=== PATIENT | female | born 1940 | race Caucasian/White ===

== ENCOUNTER 2018-11-14 21:40 | Inpatient (IN) | payer MEDICARE, MEDICAID ==
[~2018-11-14] VITALS: Ht 165.1 cm; Wt 111.1 kg
[2018-11-14 21:25] VITALS: BP 164/68
--- NOTE | 2018-11-14 21:25 | NUR ---
The patient, CHERIE MATA, 78 y/o, F admitted by KEERTHI ALBA MD. Pt. arrived via EMS. Admission assessment done at this time. Pt. describes pain as discomfort around abdomen. Pt. was given written information regarding hospital policies, unit procedures and contact persons. Pt.'s son, Grey arrived on unit to help with admission. Valuables were taken with pt.'s son. Pt. still has clothing and purse left in room with her. Call light within reach, bed low. Will continue to monitor.
[2018-11-14] MEDS ORDERED: CLON0.1T PO (22:57)
[2018-11-14] MEDS ORDERED: DOCU-109 PO (22:57)
[2018-11-14] MEDS ORDERED: LISI-130 PO (22:57)
[2018-11-14] MEDS ORDERED: CETI10TA PO (22:57)
[2018-11-14] MEDS ORDERED: PANT20TA2 PO (22:57)
[2018-11-14] MEDS ORDERED: GABA-585 PO (22:57)
[2018-11-14] MEDS ORDERED: AMLO10TA8 PO (22:57)
[2018-11-14] MEDS ORDERED: POTA10TA12 PO (22:57)
[2018-11-14] MEDS ORDERED: ASPI-630 PO (22:57)
[2018-11-14] MEDS ORDERED: FURO40TA4 PO (22:57)
[2018-11-14] MEDS ORDERED: ALPR0.254 PO (22:57)
[2018-11-14] MEDS ORDERED: CARV12.511 PO (22:57)
[2018-11-14] MEDS ORDERED: CLON0.3T PO (22:57)
[2018-11-14] MEDS ORDERED: SIMV40TA3 PO (22:57)
[2018-11-14 23:00] VITALS: BP 120/54
--- NOTE | 2018-11-14 23:05 | PDOC1 ---
History and Physical Date of Admission Date of Admission DATE: 11/14/18 TIME: 23:01 History of Present Illness History of Present Illness presented to the ER at [facility] with worsening abd pain, prior mult abd surgeries, started 9 years ago oopherectomy, then bowel perf needing ostomy that has since been reversed, then hernia surg. to ER today with 1 week of worsening diffuse pain, and some diarrhea that has now stopped. CT abd done at [facility] showed mult air/fluid levels and what appeared to be fluid around prior mesh, pain is not worse since transfer, IV abx given there for UTI, pain persists, 12/10, diffuse Past Medical History Cardiovascular: HTN Pulmonary: No pertinent hx GI: Other Heme/Onc: No pertinent hx Psych: No pertinent hx Musculoskeletal: low back pain, Osteoarthritis, Swelling, Stiffness ENT: No pertinent hx Renal/: No pertinent hx Past Surgical History Past Surgical History: Hernia Repair, Total knee replacement, Colectomy, Other Family History Family History: Heart Disease Social History Smoke: No ALCOHOL: none Current Medications Current Medications Active Scripts Active Reported Aspirin 81 Mg Tab.chew 1 Tab PO DAILY Furosemide 40 Mg Tablet 1 Tab PO DAILY All Day Allergy (Cetirizine Hcl) 10 Mg Tablet 10 Mg PO DAILY Gabapentin (Gabapentin) 100 Mg Capsule 100 Mg PO TID Colace (Docusate Sodium) 100 Mg Capsule 1 Cap PO TID Alprazolam 0.25 Mg Tablet 1 Tab PO TID Carvedilol (Carvedilol) 12.5 Mg Tablet 12.5 Mg PO BIDWMEALS Clonidine Hcl 0.1 Mg Tablet 0.1 Mg PO BID Clonidine Hcl 0.3 Mg Tablet 1 Tab PO BID Simvastatin 40 Mg Tablet 40 Mg PO DAILY Potassium Chloride 10 Meq Tab.sr.24h 10 Meq PO DAILY Amlodipine Besylate 10 Mg Tablet 10 Mg PO DAILY Lisinopril 40 Mg Tablet 40 Mg PO DAILY Protonix (Pantoprazole Sodium) 20 Mg Tablet.dr 40 Mg PO DAILY Allergies Allergies: Coded Allergies: No Known Drug Allergies (Unverified , 11/14/18) ROS General: No: Chills, Night Sweats, Fatigue, Malaise, Appetite, Other PSYCHOLOGICAL ROS: No: Anxiety, Behavioral Disorder, Concentration difficultie , Decreased libido, Depression, Disorientation, Hallucinations, Hostility, Irritablity, Memory difficulties, Mood Swings, Obsessive thoughts, Physical abuse, Sexual abuse, Sleep disturbances, Suicidal ideation, Other Eyes: No Blurry vision, No Decreased vision, No Double vision, No Dry eyes, No Excessive tearing, No Eye Pain, No Itchy Eyes, No Loss of vision, No Photophobia , No Scotomata, No Uses contacts, No Uses glasses, No Other HEENT: No: Heacaches, Visual Changes, Hearing change, Nasal congestion, Nasal discharge, Oral lesions, Sinus pain, Sore Throat, Epistaxis, Sneezing, Snoring, Tinnitus, Vertigo, Vocal changes, Other ENDOCRINE: No: Breast Changes, Galactorrhea, Hair Pattern Changes, Hot Flashes , Malaise/lethargy, Mood Swings, Palpitations, Polydipsia/polyuria, Skin Changes , Temperature Intolerance, Unexpected Weight Changes, Other Respiratory: No: Cough, Hemoptysis, Orthopnea, Pleuritic Pain, Shortness of breath, SOB with excertion, Sputum Changes, Stridor, Tachypnea, Wheezing, Other Cardiovascular: No Chest Pain, No Palpitations, No Orthopnea, No Paroxysmal Noc. Dyspnea, No Edema, No Lt Headedness, No Other Gastrointestinal: Yes Nausea, Yes Abdominal Pain, Yes Diarrhea Genitourinary: No Dysuria, No Frequency, No Incontinence, No Hematuria, No Retention, No Discharge, No Urgency, No Pain, No Flank Pain, No Other, No , No , No , No , No , No , No Musculoskeletal: Yes Joint Pain (knees), Yes Joint Stiffness; No Gait Disturbance, No Joint Swelling, No Muscle Pain, No Muscular Weakness , No Pain In:, No Swelling In:, No Other Neurological: No Behavorial Changes, No Bowel/Bladder ControlChng, No Confusion , No Dizziness, No Gait Disturbance, No Headaches, No Impaired Coord/balance, No Memory Loss, No Numbness/Tingling, No Seizures, No Speech Problems, No Tremors, No Visual Changes, No Weakness, No Other Skin: No Dry Skin, No Eczema, No Hair Changes, No Lumps, No Mole Changes, No Mottling, No Nail Changes, No Pruritus, No Rash, No Skin Lesion Changes, No Other, No Acne Physical Exam General: Alert, Oriented X3, Cooperative, No acute distress, mild distress HEENT: Atraumatic, PERRLA Lungs: Clear to auscultation Heart: S1S2, RRR Abdomen: Normal bowel sounds, Soft, Other (mild diffuse tenderness, no rebound or guarding, ) Rectal Exam: not examined Extremities: No cyanosis, No edema Skin: No breakdown, No significant lesion Neuro: Normal tone, Cranial nerves 3-12 NL Psych/Mental Status: Mental status NL, Mood NL VTE Prophylaxis Ordered VTE Prophylaxis Devices: Yes VTE Pharmacological Prophylaxi: No Assessment/Plan Assessment/Plan acute abd pain SBO, partial, mult air-fluid levels, pain OK, keep NPO mild dehydration, IV fluid, consult gen surg, possible problem with prior mesh obesity, BMI 40.6 htn, 5 agents likely chronic diastolic CHF knee pain, OA, post knee surg bilat. some prior falls, will have PT KEERTHI Bradley MD Nov 14, 2018 23:05
[2018-11-14] MEDS: POTASSIUM CL 20MEQ D5-0.45NACL 1,000 ML IV SCH (23:20)
[2018-11-14] MEDS ORDERED: cloNIDine TTS-2 1 PATCH PATCH TD ONE (23:30)
[2018-11-14] MEDS ORDERED: cefTRIAXone IM 1 GM VIAL IM ONE (23:30)
--- NOTE | 2018-11-15 02:31 | NUR ---
Pt. states she feels safe at home but feels like the "shag" rug that is throughout her apartment will cause her to fall.
[2018-11-15 03:00] VITALS: BP 150/60
[2018-11-15 06:04] LABS: BASO % 0 % (0-3); EOS # 0.1 x10^3/uL (0.0-0.7); EOS % 2 % (0-3); HEMATOCRIT 34.8 % (36.0-47.0); LYMPH # 1.7 x10^3/uL (1.0-4.8); LYMPH % 32 % (24-48); MEAN CORPUSCULAR HEMOGLOBIN 26 pg (25-35); MEAN CORPUSCULAR HGB CONC 32 g/dL (31-37); MEAN CORPUSCULAR VOLUME 82 fL (79-100); MONO # 0.5 x10^3/uL (0.0-1.1); MONO % 10 % (0-9); NEUT # 2.9 x10^3uL (1.8-7.7); NEUT % 55 % (31-73); PLATELET COUNT 193 x10^3/uL (140-400); RED BLOOD COUNT 4.22 x10^6/uL (3.50-5.40); RED CELL DISTRIBUTION WIDTH 15.6 % (11.5-14.5); WHITE BLOOD COUNT 5.2 x10^3/uL (4.0-11.0)
--- NOTE | 2018-11-15 06:05 | NUR ---
Dr. Pacheco consulted this morning by this nurse.
[2018-11-15 06:26] LABS: ALBUMIN 3.4 g/dL (3.4-5.0); ALBUMIN/GLOBULIN RATIO 0.9 (1.0-1.7); CALCIUM 8.4 mg/dL (8.5-10.1); CREATININE 1.1 mg/dL (0.6-1.0); GFR 47.8; POTASSIUM 4.3 mmol/L (3.5-5.1); TOTAL BILIRUBIN 0.4 mg/dL (0.2-1.0); TOTAL PROTEIN 7.1 g/dL (6.4-8.2)
[2018-11-15 07:00] VITALS: BP 148/67
--- NOTE | 2018-11-15 08:20 | PDOC2 ---
JUANITA DAY DATAPOWER CONSULTANT 11/15/18 0820: CONSULT Date of Consult Date of Consult DATE: 11/15/18 TIME: 08:11 Reason for Consult Reason for Consult: previous surgery, mesh, possible infection Referring Physician Referring Physician: Dr Franklin Identification/Chief Complaint Chief Complaint abdominal pain Source Source: Chart review, Patient History of Present Illness Reason for Visit: Patient admitted with acute onset abdominal pain, nausea, and diarrhea. This all started yesterday. She reports it occurs intermittently, but usually feels better after diarrhea resolves. She has had multiple surgeries including colostomy and takedown. Underwent xlap and VIH repair with Dr Booker in 2012. CT at [facility] concerning for mesh infection. Past Medical History Cardiovascular: HTN Pulmonary: No pertinent hx GI: Other Heme/Onc: No pertinent hx Psych: No pertinent hx Musculoskeletal: low back pain, Osteoarthritis, Swelling, Stiffness ENT: No pertinent hx Renal/: No pertinent hx Past Surgical History Past Surgical History: Hernia Repair, Total knee replacement, Colectomy, Other Family History Family History: Heart Disease Social History No ALCOHOL: none Current Medications Current Medications Current Medications Ceftriaxone Sodium (Rocephin Im) 1 gm 1X ONCE IM Last administered on at 23:21; Start 11/14/18 at 23:30; Stop 11/14/18 at 23:31; Status DC Potassium Chloride/Dextrose/ Sod Cl 1,000 ml @ 80 mls/hr [id number] IV Last administered on 11/14/18at 23:20; Start 11/14/18 at 23:00 Clonidine HCl (Catapres Tts-2) 1 patch 1X ONCE TD Last administered on at 23:19; Start 11/14/18 at 23:30; Stop 11/14/18 at 23:31; Status DC Alprazolam (Xanax) 0.25 mg TID PO ; Start 11/15/18 at 09:00 Amlodipine Besylate (Norvasc) 10 mg DAILY PO ; Start 11/15/18 at 09:00 Aspirin (Children'S Aspirin) 81 mg DAILY PO ; Start 11/15/18 at 09:00 Carvedilol (Coreg) 12.5 mg BIDWMEALS PO ; Start 11/15/18 at 08:00 Cetirizine HCl (ZyrTEC) 10 mg DAILY PO ; Start 11/15/18 at 09:00 Clonidine HCl (Catapres) 0.1 mg BID PO ; Start 11/15/18 at 09:00; Status UNV Clonidine HCl (Catapres) 0.3 mg BID PO ; Start 11/15/18 at 09:00; Status UNV Docusate Sodium (Colace) 100 mg TID PO ; Start 11/15/18 at 09:00 Gabapentin (Neurontin) 100 mg TID PO ; Start 11/15/18 at 09:00 Lisinopril (Prinivil) 40 mg DAILY PO ; Start 11/15/18 at 09:00 Potassium Chloride (Klor-Con) 10 meq DAILY PO ; Start 11/15/18 at 09:00 Pantoprazole Sodium (Protonix) 40 mg DAILYAC PO ; Start 11/15/18 at 07:30 Atorvastatin Calcium (Lipitor) 20 mg QHS PO ; Start 11/15/18 at 21:00 Clonidine HCl (Catapres) 0.4 mg BID PO ; Start 11/15/18 at 09:00 Ketorolac Tromethamine (Toradol 15mg Vial) 15 mg PRN Q6HRS PRN IV MODERATE PAIN ; Start 11/15/18 at 00:45; Stop 11/20/18 at 00:44 Active Scripts Active Reported Aspirin 81 Mg Tab.chew 1 Tab PO DAILY Furosemide 40 Mg Tablet 1 Tab PO DAILY All Day Allergy (Cetirizine Hcl) 10 Mg Tablet 10 Mg PO DAILY Gabapentin (Gabapentin) 100 Mg Capsule 100 Mg PO TID Colace (Docusate Sodium) 100 Mg Capsule 1 Cap PO TID Alprazolam 0.25 Mg Tablet 1 Tab PO TID Carvedilol (Carvedilol) 12.5 Mg Tablet 12.5 Mg PO BIDWMEALS Clonidine Hcl 0.1 Mg Tablet 0.1 Mg PO BID Clonidine Hcl 0.3 Mg Tablet 1 Tab PO BID Simvastatin 40 Mg Tablet 40 Mg PO DAILY Potassium Chloride 10 Meq Tab.sr.24h 10 Meq PO DAILY Amlodipine Besylate 10 Mg Tablet 10 Mg PO DAILY Lisinopril 40 Mg Tablet 40 Mg PO DAILY Protonix (Pantoprazole Sodium) 20 Mg Tablet.dr 40 Mg PO DAILY Allergies Allergies: Coded Allergies: No Known Drug Allergies (Unverified , 11/14/18) ROS General: YES: Other (subjective feverish ); No: Chills PSYCHOLOGICAL ROS: No: Anxiety, Depression Eyes: No Blurry vision, No Double vision HEENT: No: Heacaches, Sore Throat Hematological and Lymphatic: No: Bleeding Problems, Blood Clots Respiratory: No: Cough, Shortness of breath Gastrointestinal: Yes Other (see hpi) Genitourinary: No Dysuria, No Hematuria Musculoskeletal: No Joint Pain, No Muscle Pain Neurological: No Confusion, No Impaired Coord/balance Skin: No Pruritus, No Rash Physical Exam General: Alert, Oriented X3, Cooperative, No acute distress HEENT: PERRLA, Mucous membr. moist/pink Lungs: Clear to auscultation, Normal air movement Heart: Regular rate, Normal S1, Normal S2, No murmurs Abdomen: Soft, No tenderness, Other (ND) Extremities: No clubbing, No cyanosis Skin: No rashes, No breakdown Neuro: Normal gait, Normal speech Psych/Mental Status: Mental status NL, Mood NL MUSCULOSKELETAL: No deformity, No swelling Vitals VITALS Vital Signs Date Time Temp Pulse Resp B/P (MAP) Pulse Ox O2 Delivery O2 Flow Rate FiO2 11/15/18 03:00 98.3 70 18 150/60 (90) 95 Room Air 98.3 Labs Labs Laboratory Tests Test 11/15/18 05:27 White Blood Count 5.2 x10^3/uL (4.0-11.0) Red Blood Count 4.22 x10^6/uL (3.50-5.40) Hemoglobin 11.0 g/dL (12.0-15.5) Hematocrit 34.8 % (36.0-47.0) Mean Corpuscular Volume 82 fL (79-100) Mean Corpuscular Hemoglobin 26 pg (25-35) Mean Corpuscular Hemoglobin Concent 32 g/dL (31-37) Red Cell Distribution Width 15.6 % (11.5-14.5) Platelet Count 193 x10^3/uL (140-400) Neutrophils (%) (Auto) 55 % (31-73) Lymphocytes (%) (Auto) 32 % (24-48) Monocytes (%) (Auto) 10 % (0-9) Eosinophils (%) (Auto) 2 % (0-3) Basophils (%) (Auto) 0 % (0-3) Neutrophils # (Auto) 2.9 x10^3uL (1.8-7.7) Lymphocytes # (Auto) 1.7 x10^3/uL (1.0-4.8) Monocytes # (Auto) 0.5 x10^3/uL (0.0-1.1) Eosinophils # (Auto) 0.1 x10^3/uL (0.0-0.7) Basophils # (Auto) 0.0 x10^3/uL (0.0-0.2) Sodium Level 139 mmol/L (136-145) Potassium Level 4.3 mmol/L (3.5-5.1) Chloride Level 101 mmol/L (98-107) Carbon Dioxide Level 28 mmol/L (21-32) Anion Gap 10 (6-14) Blood Urea Nitrogen 25 mg/dL (7-20) Creatinine 1.1 mg/dL (0.6-1.0) Estimated GFR (Cockcroft-Gault) 47.8 BUN/Creatinine Ratio 23 (6-20) Glucose Level 98 mg/dL (70-99) Calcium Level 8.4 mg/dL (8.5-10.1) Total Bilirubin 0.4 mg/dL (0.2-1.0) Aspartate Amino Transf (AST/SGOT) 19 U/L (15-37) Alanine Aminotransferase (ALT/SGPT) 13 U/L (14-59) Alkaline Phosphatase 84 U/L (46-116) Total Protein 7.1 g/dL (6.4-8.2) Albumin 3.4 g/dL (3.4-5.0) Albumin/Globulin Ratio 0.9 (1.0-1.7) Laboratory Tests Test 11/15/18 05:27 White Blood Count 5.2 x10^3/uL (4.0-11.0) Red Blood Count 4.22 x10^6/uL (3.50-5.40) Hemoglobin 11.0 g/dL (12.0-15.5) Hematocrit 34.8 % (36.0-47.0) Mean Corpuscular Volume 82 fL (79-100) Mean Corpuscular Hemoglobin 26 pg (25-35) Mean Corpuscular Hemoglobin Concent 32 g/dL (31-37) Red Cell Distribution Width 15.6 % (11.5-14.5) Platelet Count 193 x10^3/uL (140-400) Neutrophils (%) (Auto) 55 % (31-73) Lymphocytes (%) (Auto) 32 % (24-48) Monocytes (%) (Auto) 10 % (0-9) Eosinophils (%) (Auto) 2 % (0-3) Basophils (%) (Auto) 0 % (0-3) Neutrophils # (Auto) 2.9 x10^3uL (1.8-7.7) Lymphocytes # (Auto) 1.7 x10^3/uL (1.0-4.8) Monocytes # (Auto) 0.5 x10^3/uL (0.0-1.1) Eosinophils # (Auto) 0.1 x10^3/uL (0.0-0.7) Basophils # (Auto) 0.0 x10^3/uL (0.0-0.2) Sodium Level 139 mmol/L (136-145) Potassium Level 4.3 mmol/L (3.5-5.1) Chloride Level 101 mmol/L (98-107) Carbon Dioxide Level 28 mmol/L (21-32) Anion Gap 10 (6-14) Blood Urea Nitrogen 25 mg/dL (7-20) Creatinine 1.1 mg/dL (0.6-1.0) Estimated GFR (Cockcroft-Gault) 47.8 BUN/Creatinine Ratio 23 (6-20) Glucose Level 98 mg/dL (70-99) Calcium Level 8.4 mg/dL (8.5-10.1) Total Bilirubin 0.4 mg/dL (0.2-1.0) Aspartate Amino Transf (AST/SGOT) 19 U/L (15-37) Alanine Aminotransferase (ALT/SGPT) 13 U/L (14-59) Alkaline Phosphatase 84 U/L (46-116) Total Protein 7.1 g/dL (6.4-8.2) Albumin 3.4 g/dL (3.4-5.0) Albumin/Globulin Ratio 0.9 (1.0-1.7) Images Images CT-There is mesh from prior large ventral abdominal wall hernia repair. There are a few foci of air and fluid along the mesh in the anterior lobe pelvis images 54 through 58. This suggest infection. Clinical correlation is suggested. Assessment/Plan Assessment/Plan abd pain, diarrhea UTI CT concerning for possible mesh infection overall pain improved cdiff testing at [facility] pending will review with DANICA Ruiz MD 11/16/18 0830: CONSULT Assessment/Plan Assessment/Plan Patient had abdominal pain and felt she was on fire and mouth swelling. CT reviewed mesh appears with expected inflammation. No evidence of infection normal wbc and afebrile. No surgical plans. Agree with Melody's assessment and plan. JUANITA DAY APRN Nov 15, 2018 08:20 DANICA BOOKER MD Nov 16, 2018 08:30
[2018-11-15] MEDS ORDERED: cloNIDine HCL 0.1 MG TABLET PO SCH (09:00)
[2018-11-15] MEDS ORDERED: cloNIDine HCL 0.3 MG TABLET PO SCH (09:00)
[2018-11-15] MEDS: KETOROLAC 15 MG/ML VIAL. IV PRN ×2 (09:46→17:26)
--- NOTE | 2018-11-15 10:27 | NUR ---
SW following for discharge planning. Discussed with RN, pt is from a [facility] facility. SW looked up pt's address, it is for [facility]. RN advised pt could possibly be having surgery. SW will continue to follow for any discharge planning needs.
[2018-11-15 11:00] VITALS: BP 144/66
--- NOTE | 2018-11-15 11:29 | PDOC ---
PROGRESS NOTES Chief Complaint Chief Complaint acute abd pain suspect SBO, partial, mult air-fluid levels, keep NPO, continue IVF. consult gen surg for further recommendations. UTI, check urine culture and continue rocephin obesity, BMI 40.6 htn, continue home meds likely chronic diastolic CHF. hold fluids once seen by GI. knee pain,OA: post knee surg bilat.some prior falls, PT eval Vitals Vitals Vital Signs Date Time Temp Pulse Resp B/P (MAP) Pulse Ox O2 Delivery O2 Flow Rate FiO2 11/15/18 08:10 Room Air 11/15/18 07:00 98.5 95 18 148/67 (94) 92 98.5 Physical Exam General: Alert, Oriented X3, Cooperative, No acute distress Heart: Regular rate, Normal S1, Normal S2, No murmurs Abdomen: Soft, No tenderness, Other (ND) Extremities: No clubbing, No cyanosis Skin: No rashes, No breakdown Labs LABS Laboratory Tests Test 11/15/18 05:27 White Blood Count 5.2 x10^3/uL (4.0-11.0) Red Blood Count 4.22 x10^6/uL (3.50-5.40) Hemoglobin 11.0 g/dL (12.0-15.5) Hematocrit 34.8 % (36.0-47.0) Mean Corpuscular Volume 82 fL (79-100) Mean Corpuscular Hemoglobin 26 pg (25-35) Mean Corpuscular Hemoglobin Concent 32 g/dL (31-37) Red Cell Distribution Width 15.6 % (11.5-14.5) Platelet Count 193 x10^3/uL (140-400) Neutrophils (%) (Auto) 55 % (31-73) Lymphocytes (%) (Auto) 32 % (24-48) Monocytes (%) (Auto) 10 % (0-9) Eosinophils (%) (Auto) 2 % (0-3) Basophils (%) (Auto) 0 % (0-3) Neutrophils # (Auto) 2.9 x10^3uL (1.8-7.7) Lymphocytes # (Auto) 1.7 x10^3/uL (1.0-4.8) Monocytes # (Auto) 0.5 x10^3/uL (0.0-1.1) Eosinophils # (Auto) 0.1 x10^3/uL (0.0-0.7) Basophils # (Auto) 0.0 x10^3/uL (0.0-0.2) Sodium Level 139 mmol/L (136-145) Potassium Level 4.3 mmol/L (3.5-5.1) Chloride Level 101 mmol/L (98-107) Carbon Dioxide Level 28 mmol/L (21-32) Anion Gap 10 (6-14) Blood Urea Nitrogen 25 mg/dL (7-20) Creatinine 1.1 mg/dL (0.6-1.0) Estimated GFR (Cockcroft-Gault) 47.8 BUN/Creatinine Ratio 23 (6-20) Glucose Level 98 mg/dL (70-99) Calcium Level 8.4 mg/dL (8.5-10.1) Total Bilirubin 0.4 mg/dL (0.2-1.0) Aspartate Amino Transf (AST/SGOT) 19 U/L (15-37) Alanine Aminotransferase (ALT/SGPT) 13 U/L (14-59) Alkaline Phosphatase 84 U/L (46-116) Total Protein 7.1 g/dL (6.4-8.2) Albumin 3.4 g/dL (3.4-5.0) Albumin/Globulin Ratio 0.9 (1.0-1.7) Comment Review of Relevant I have reviewed the following items sheng (where applicable) has been applied. Labs Laboratory Tests Test 11/15/18 05:27 White Blood Count 5.2 x10^3/uL (4.0-11.0) Red Blood Count 4.22 x10^6/uL (3.50-5.40) Hemoglobin 11.0 g/dL (12.0-15.5) Hematocrit 34.8 % (36.0-47.0) Mean Corpuscular Volume 82 fL (79-100) Mean Corpuscular Hemoglobin 26 pg (25-35) Mean Corpuscular Hemoglobin Concent 32 g/dL (31-37) Red Cell Distribution Width 15.6 % (11.5-14.5) Platelet Count 193 x10^3/uL (140-400) Neutrophils (%) (Auto) 55 % (31-73) Lymphocytes (%) (Auto) 32 % (24-48) Monocytes (%) (Auto) 10 % (0-9) Eosinophils (%) (Auto) 2 % (0-3) Basophils (%) (Auto) 0 % (0-3) Neutrophils # (Auto) 2.9 x10^3uL (1.8-7.7) Lymphocytes # (Auto) 1.7 x10^3/uL (1.0-4.8) Monocytes # (Auto) 0.5 x10^3/uL (0.0-1.1) Eosinophils # (Auto) 0.1 x10^3/uL (0.0-0.7) Basophils # (Auto) 0.0 x10^3/uL (0.0-0.2) Sodium Level 139 mmol/L (136-145) Potassium Level 4.3 mmol/L (3.5-5.1) Chloride Level 101 mmol/L (98-107) Carbon Dioxide Level 28 mmol/L (21-32) Anion Gap 10 (6-14) Blood Urea Nitrogen 25 mg/dL (7-20) Creatinine 1.1 mg/dL (0.6-1.0) Estimated GFR (Cockcroft-Gault) 47.8 BUN/Creatinine Ratio 23 (6-20) Glucose Level 98 mg/dL (70-99) Calcium Level 8.4 mg/dL (8.5-10.1) Total Bilirubin 0.4 mg/dL (0.2-1.0) Aspartate Amino Transf (AST/SGOT) 19 U/L (15-37) Alanine Aminotransferase (ALT/SGPT) 13 U/L (14-59) Alkaline Phosphatase 84 U/L (46-116) Total Protein 7.1 g/dL (6.4-8.2) Albumin 3.4 g/dL (3.4-5.0) Albumin/Globulin Ratio 0.9 (1.0-1.7) Laboratory Tests Test 11/15/18 05:27 White Blood Count 5.2 x10^3/uL (4.0-11.0) Red Blood Count 4.22 x10^6/uL (3.50-5.40) Hemoglobin 11.0 g/dL (12.0-15.5) Hematocrit 34.8 % (36.0-47.0) Mean Corpuscular Volume 82 fL (79-100) Mean Corpuscular Hemoglobin 26 pg (25-35) Mean Corpuscular Hemoglobin Concent 32 g/dL (31-37) Red Cell Distribution Width 15.6 % (11.5-14.5) Platelet Count 193 x10^3/uL (140-400) Neutrophils (%) (Auto) 55 % (31-73) Lymphocytes (%) (Auto) 32 % (24-48) Monocytes (%) (Auto) 10 % (0-9) Eosinophils (%) (Auto) 2 % (0-3) Basophils (%) (Auto) 0 % (0-3) Neutrophils # (Auto) 2.9 x10^3uL (1.8-7.7) Lymphocytes # (Auto) 1.7 x10^3/uL (1.0-4.8) Monocytes # (Auto) 0.5 x10^3/uL (0.0-1.1) Eosinophils # (Auto) 0.1 x10^3/uL (0.0-0.7) Basophils # (Auto) 0.0 x10^3/uL (0.0-0.2) Sodium Level 139 mmol/L (136-145) Potassium Level 4.3 mmol/L (3.5-5.1) Chloride Level 101 mmol/L (98-107) Carbon Dioxide Level 28 mmol/L (21-32) Anion Gap 10 (6-14) Blood Urea Nitrogen 25 mg/dL (7-20) Creatinine 1.1 mg/dL (0.6-1.0) Estimated GFR (Cockcroft-Gault) 47.8 BUN/Creatinine Ratio 23 (6-20) Glucose Level 98 mg/dL (70-99) Calcium Level 8.4 mg/dL (8.5-10.1) Total Bilirubin 0.4 mg/dL (0.2-1.0) Aspartate Amino Transf (AST/SGOT) 19 U/L (15-37) Alanine Aminotransferase (ALT/SGPT) 13 U/L (14-59) Alkaline Phosphatase 84 U/L (46-116) Total Protein 7.1 g/dL (6.4-8.2) Albumin 3.4 g/dL (3.4-5.0) Albumin/Globulin Ratio 0.9 (1.0-1.7) Medications Current Medications Ceftriaxone Sodium (Rocephin Im) 1 gm 1X ONCE IM Last administered on at 23:21; Start 11/14/18 at 23:30; Stop 11/14/18 at 23:31; Status DC Potassium Chloride/Dextrose/ Sod Cl 1,000 ml @ 30 mls/hr Q24H IV Last administered on 11/14/18at 23:20; Start 11/14/18 at 23:00 Clonidine HCl (Catapres Tts-2) 1 patch 1X ONCE TD Last administered on at 23:19; Start 11/14/18 at 23:30; Stop 11/14/18 at 23:31; Status DC Alprazolam (Xanax) 0.25 mg TID PO ; Start 11/15/18 at 09:00 Amlodipine Besylate (Norvasc) 10 mg DAILY PO ; Start 11/15/18 at 09:00 Aspirin (Children'S Aspirin) 81 mg DAILY PO ; Start 11/15/18 at 09:00 Carvedilol (Coreg) 12.5 mg BIDWMEALS PO ; Start 11/15/18 at 08:00 Cetirizine HCl (ZyrTEC) 10 mg DAILY PO ; Start 11/15/18 at 09:00 Clonidine HCl (Catapres) 0.1 mg BID PO ; Start 11/15/18 at 09:00; Status UNV Clonidine HCl (Catapres) 0.3 mg BID PO ; Start 11/15/18 at 09:00; Status UNV Docusate Sodium (Colace) 100 mg TID PO ; Start 11/15/18 at 09:00 Gabapentin (Neurontin) 100 mg TID PO ; Start 11/15/18 at 09:00 Lisinopril (Prinivil) 40 mg DAILY PO ; Start 11/15/18 at 09:00 Potassium Chloride (Klor-Con) 10 meq DAILY PO ; Start 11/15/18 at 09:00 Pantoprazole Sodium (Protonix) 40 mg DAILYAC PO ; Start 11/15/18 at 07:30 Atorvastatin Calcium (Lipitor) 20 mg QHS PO ; Start 11/15/18 at 21:00 Clonidine HCl (Catapres) 0.4 mg BID PO ; Start 11/15/18 at 09:00 Ketorolac Tromethamine (Toradol 15mg Vial) 15 mg PRN Q6HRS PRN IV MODERATE PAIN Last administered on 11/15/18at 09:46; Start 11/15/18 at 00:45; Stop at 00:44 Ceftriaxone Sodium (Rocephin) 1 gm Q24H IVP ; Start 11/15/18 at 21:00 Active Scripts Active Reported Aspirin 81 Mg Tab.chew 1 Tab PO DAILY Furosemide 40 Mg Tablet 1 Tab PO DAILY All Day Allergy (Cetirizine Hcl) 10 Mg Tablet 10 Mg PO DAILY Gabapentin (Gabapentin) 100 Mg Capsule 100 Mg PO TID Colace (Docusate Sodium) 100 Mg Capsule 1 Cap PO TID Alprazolam 0.25 Mg Tablet 1 Tab PO TID Carvedilol (Carvedilol) 12.5 Mg Tablet 12.5 Mg PO BIDWMEALS Clonidine Hcl 0.1 Mg Tablet 0.1 Mg PO BID Clonidine Hcl 0.3 Mg Tablet 1 Tab PO BID Simvastatin 40 Mg Tablet 40 Mg PO DAILY Potassium Chloride 10 Meq Tab.sr.24h 10 Meq PO DAILY Amlodipine Besylate 10 Mg Tablet 10 Mg PO DAILY Lisinopril 40 Mg Tablet 40 Mg PO DAILY Protonix (Pantoprazole Sodium) 20 Mg Tablet.dr 40 Mg PO DAILY Vitals/I & O Vital Sign - Last 24 Hours 11/14/18 11/14/18 11/14/18 11/15/18 21:25 22:00 23:00 03:00 Temp 98.7 98.2 98.3 98.7 98.2 98.3 Pulse 84 70 70 Resp 18 18 18 B/P (MAP) 164/68 (100) 120/54 (76) 150/60 (90) Pulse Ox 90 98 95 O2 Delivery Room Air Room Air Room Air Room Air 11/15/18 11/15/18 07:00 08:10 Temp 98.5 98.5 Pulse 95 Resp 18 B/P (MAP) 148/67 (94) Pulse Ox 92 O2 Delivery Room Air Room Air MIGUE JOE MD Nov 15, 2018 11:29
[2018-11-15] MEDS: ALPRAZolam 0.25 MG TABLET PO SCH ×3 (14:00→20:31)
[2018-11-15] MEDS: GABAPENTIN 100 MG CAPSULE. PO SCH ×3 (14:00→20:32)
[2018-11-15] MEDS: DOCUSATE SODIUM 100 MG CAPSULE. PO SCH ×3 (14:00→20:31)
[2018-11-15] MEDS: PANTOPRAZOLE 40 MG TABLET.DR. PO SCH (14:13)
[2018-11-15] MEDS: CETIRIZINE HCL 10 MG TABLET. PO SCH (14:13)
[2018-11-15] MEDS: POTASSIUM CHLORIDE 10 MEQ TABLET.ER. PO SCH (14:13)
[2018-11-15] MEDS: ASPIRIN CHEWABLE 81 MG TABLET. PO SCH (14:13)
[2018-11-15] MEDS: cloNIDine HCL 0.2 MG TABLET PO SCH ×2 (14:14→20:33)
[2018-11-15] MEDS: amLODIPine BESYLATE 10 MG TABLET PO SCH (14:14)
[2018-11-15] MEDS: POTASSIUM CL 20MEQ D5-0.45NACL 1,000 ML IV SCH (14:15)
[2018-11-15] MEDS: CARVEDILOL 12.5 MG TABLET. PO SCH ×2 (14:15→14:19)
[2018-11-15] MEDS: LISINOPRIL 20 MG TABLET PO SCH (14:15)
[2018-11-15 15:00] VITALS: BP 160/61
[2018-11-15 19:00] VITALS: BP 95/41
[2018-11-15] MEDS: ENOXAPARIN 40 MG/0.4 ML SYRINGE. SQ SCH (20:32)
[2018-11-15] MEDS ORDERED: ATORVASTATIN CALCIUM 20 MG TABLET PO SCH (21:00)
[2018-11-15] MEDS ORDERED: cefTRIAXone IV Push 1 GM VIAL. IVP SCH (21:00)
[2018-11-15 23:00] VITALS: BP 100/43
[2018-11-16 03:00] VITALS: BP 127/53
[2018-11-16 07:00] VITALS: BP 149/60
[2018-11-16] MEDS: CARVEDILOL 12.5 MG TABLET. PO SCH (08:29)
[2018-11-16] MEDS: POTASSIUM CHLORIDE 10 MEQ TABLET.ER. PO SCH (08:29)
[2018-11-16] MEDS: LISINOPRIL 20 MG TABLET PO SCH (08:30)
[2018-11-16] MEDS: DOCUSATE SODIUM 100 MG CAPSULE. PO SCH ×2 (08:30→14:00)
[2018-11-16] MEDS: PANTOPRAZOLE 40 MG TABLET.DR. PO SCH (08:31)
[2018-11-16] MEDS: CETIRIZINE HCL 10 MG TABLET. PO SCH (08:31)
[2018-11-16] MEDS: ASPIRIN CHEWABLE 81 MG TABLET. PO SCH (08:31)
[2018-11-16] MEDS: ENOXAPARIN 40 MG/0.4 ML SYRINGE. SQ SCH (08:31)
--- NOTE | 2018-11-16 08:32 | PDOC ---
SURGICAL PROGRESS NOTE Subjective Patient feeling much better, no abd pain. Tolerated diet Vital Signs Vital Signs Date Time Temp Pulse Resp B/P (MAP) Pulse Ox O2 Delivery O2 Flow Rate FiO2 11/16/18 07:00 98.0 87 17 149/60 (89) 87 Room Air 98.0 PATIENT HAS A BENJAMIN: No General: Alert, Oriented X3, Cooperative, No acute distress Abdomen: Normal bowel sounds, Soft, No tenderness, Other (no erythema) Labs Laboratory Tests Test 11/14/18 23:50 11/15/18 05:27 Nasal Screen MRSA (PCR) Negative (Negative) White Blood Count 5.2 x10^3/uL (4.0-11.0) Red Blood Count 4.22 x10^6/uL (3.50-5.40) Hemoglobin 11.0 g/dL (12.0-15.5) Hematocrit 34.8 % (36.0-47.0) Mean Corpuscular Volume 82 fL (79-100) Mean Corpuscular Hemoglobin 26 pg (25-35) Mean Corpuscular Hemoglobin Concent 32 g/dL (31-37) Red Cell Distribution Width 15.6 % (11.5-14.5) Platelet Count 193 x10^3/uL (140-400) Neutrophils (%) (Auto) 55 % (31-73) Lymphocytes (%) (Auto) 32 % (24-48) Monocytes (%) (Auto) 10 % (0-9) Eosinophils (%) (Auto) 2 % (0-3) Basophils (%) (Auto) 0 % (0-3) Neutrophils # (Auto) 2.9 x10^3uL (1.8-7.7) Lymphocytes # (Auto) 1.7 x10^3/uL (1.0-4.8) Monocytes # (Auto) 0.5 x10^3/uL (0.0-1.1) Eosinophils # (Auto) 0.1 x10^3/uL (0.0-0.7) Basophils # (Auto) 0.0 x10^3/uL (0.0-0.2) Sodium Level 139 mmol/L (136-145) Potassium Level 4.3 mmol/L (3.5-5.1) Chloride Level 101 mmol/L (98-107) Carbon Dioxide Level 28 mmol/L (21-32) Anion Gap 10 (6-14) Blood Urea Nitrogen 25 mg/dL (7-20) Creatinine 1.1 mg/dL (0.6-1.0) Estimated GFR (Cockcroft-Gault) 47.8 BUN/Creatinine Ratio 23 (6-20) Glucose Level 98 mg/dL (70-99) Calcium Level 8.4 mg/dL (8.5-10.1) Total Bilirubin 0.4 mg/dL (0.2-1.0) Aspartate Amino Transf (AST/SGOT) 19 U/L (15-37) Alanine Aminotransferase (ALT/SGPT) 13 U/L (14-59) Alkaline Phosphatase 84 U/L (46-116) Total Protein 7.1 g/dL (6.4-8.2) Albumin 3.4 g/dL (3.4-5.0) Albumin/Globulin Ratio 0.9 (1.0-1.7) Assessment/Plan No evidence of abdominal mesh infection. No surgical plans DANICA MEYERS MD Nov 16, 2018 08:32
--- NOTE | 2018-11-16 08:45 | NUR ---
SW following for discharge planning. Discussed with RN, possibility of surgery. PT/OT waiting for pt to have surgery before making recommendations. SW will continue to follow.
[2018-11-16] MEDS: cloNIDine HCL 0.2 MG TABLET PO SCH (09:00)
[2018-11-16] MEDS: GABAPENTIN 100 MG CAPSULE. PO SCH ×2 (09:00→14:00)
[2018-11-16] MEDS: amLODIPine BESYLATE 10 MG TABLET PO SCH (09:00)
[2018-11-16] MEDS: ALPRAZolam 0.25 MG TABLET PO SCH ×2 (09:00→14:00)
[2018-11-16 11:04] VITALS: BP 127/58
--- NOTE | 2018-11-16 12:05 | PDOC3 ---
Discharge Summary Visit Information Date of Admission: Nov 14, 2018 Date of Discharge: Nov 16, 2018 Brief Hospital Course Allergies Allergies Coded Allergies Type Severity Reaction Last Updated Verified No Known Drug Allergies 11/14/18 No Vital Signs Vital Signs Date Time Temp Pulse Resp B/P (MAP) Pulse Ox O2 Delivery O2 Flow Rate FiO2 11/16/18 11:04 98.0 65 18 127/58 (81) 94 Room Air 98.0 Lab Results Laboratory Tests Test 11/14/18 23:50 11/15/18 05:27 Nasal Screen MRSA (PCR) Negative (Negative) White Blood Count 5.2 x10^3/uL (4.0-11.0) Red Blood Count 4.22 x10^6/uL (3.50-5.40) Hemoglobin 11.0 g/dL (12.0-15.5) Hematocrit 34.8 % (36.0-47.0) Mean Corpuscular Volume 82 fL (79-100) Mean Corpuscular Hemoglobin 26 pg (25-35) Mean Corpuscular Hemoglobin Concent 32 g/dL (31-37) Red Cell Distribution Width 15.6 % (11.5-14.5) Platelet Count 193 x10^3/uL (140-400) Neutrophils (%) (Auto) 55 % (31-73) Lymphocytes (%) (Auto) 32 % (24-48) Monocytes (%) (Auto) 10 % (0-9) Eosinophils (%) (Auto) 2 % (0-3) Basophils (%) (Auto) 0 % (0-3) Neutrophils # (Auto) 2.9 x10^3uL (1.8-7.7) Lymphocytes # (Auto) 1.7 x10^3/uL (1.0-4.8) Monocytes # (Auto) 0.5 x10^3/uL (0.0-1.1) Eosinophils # (Auto) 0.1 x10^3/uL (0.0-0.7) Basophils # (Auto) 0.0 x10^3/uL (0.0-0.2) Sodium Level 139 mmol/L (136-145) Potassium Level 4.3 mmol/L (3.5-5.1) Chloride Level 101 mmol/L (98-107) Carbon Dioxide Level 28 mmol/L (21-32) Anion Gap 10 (6-14) Blood Urea Nitrogen 25 mg/dL (7-20) Creatinine 1.1 mg/dL (0.6-1.0) Estimated GFR (Cockcroft-Gault) 47.8 BUN/Creatinine Ratio 23 (6-20) Glucose Level 98 mg/dL (70-99) Calcium Level 8.4 mg/dL (8.5-10.1) Total Bilirubin 0.4 mg/dL (0.2-1.0) Aspartate Amino Transf (AST/SGOT) 19 U/L (15-37) Alanine Aminotransferase (ALT/SGPT) 13 U/L (14-59) Alkaline Phosphatase 84 U/L (46-116) Total Protein 7.1 g/dL (6.4-8.2) Albumin 3.4 g/dL (3.4-5.0) Albumin/Globulin Ratio 0.9 (1.0-1.7) Brief Hospital Course 78 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 She reports it occurs intermittently, but usually feels better after diarrhea resolves. She has had multiple surgeries including colostomy and takedown. 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 CT at [facility] concerning for mesh infection. patient admitted for further eval. patient was kept NPO and evaluated by general sx who did not believe she had a mesh infection and no surgical plans required. patient was able to tolerate a diet and was pain free at discharge. there was concern for urine infection and patient got 3 days of IV rocephin. will not plan for further abx. patient will be discharged home in stable condition. Discharge Information Condition at Discharge: Improved Follow Up: Weeks Disposition/Orders: D/C to Home Scheduled Alprazolam (Alprazolam) 0.25 Mg Tablet, 1 TAB PO TID for anxiety, #90 (Reported) Entered as Reported by: NBA HUA on 11/14/182256 Last Action: Continued on 11/14/182304 by KEERTHI ALBA Amlodipine Besylate (Amlodipine Besylate) 10 Mg Tablet, 10 MG PO DAILY for high blood pressure, (Reported) Entered as Reported by: NBA HUA on 11/14/182256 Last Action: Continued on 11/14/182304 by KEERTHI ALBA Aspirin (Aspirin) 81 Mg Tab.chew, 1 TAB PO DAILY for hypertension, #30 Ref 3 ( Reported) Entered as Reported by: NBA HUA on 11/14/182256 Last Action: Continued on 11/14/182304 by KEERTHI ALBA Carvedilol (Carvedilol ) 12.5 Mg Tablet, 12.5 MG PO BIDWMEALS for CARDIAC, ( Reported) Entered as Reported by: NBA HUA on 11/14/182256 Last Action: Continued on 11/14/182304 by KEERTHI ALBA Cetirizine Hcl (All Day Allergy) 10 Mg Tablet, 10 MG PO DAILY for allergies, ( Reported) Entered as Reported by: NBA HUA on 11/14/182256 Last Action: Continued on 11/14/182304 by KEERTHI ALBA Clonidine Hcl (Clonidine Hcl) 0.3 Mg Tablet, 1 TAB PO BID for blood pressure, # 30 Ref 2 (Reported) Entered as Reported by: NBA HUA on 11/14/182256 Last Action: Continued on 11/14/182304 by KEERTHI ALBA Clonidine Hcl (Clonidine Hcl) 0.1 Mg Tablet, 0.1 MG PO BID for blood pressure, ( Reported) Entered as Reported by: NBA HUA on 11/14/182256 Last Action: Continued on 11/14/182304 by KEERTHI ALBA Docusate Sodium (Colace) 100 Mg Capsule, 1 CAP PO TID for constipation, #30 ( Reported) Entered as Reported by: NBA HUA on 11/14/182256 Last Action: Continued on 11/14/182304 by KEERTHI ALBA Furosemide (Furosemide) 40 Mg Tablet, 1 TAB PO DAILY for hypertension, edema, # 30 Ref 5 (Reported) Entered as Reported by: NBA HUA on 11/14/182256 Last Action: HELD on 11/14/182304 by KEERTHI ALBA Gabapentin (Gabapentin ) 100 Mg Capsule, 100 MG PO TID for NEUROGENIC PAIN, ( Reported) Entered as Reported by: NBA HUA on 11/14/182256 Last Action: Continued on 11/14/182304 by KEERTHI ALBA Lisinopril (Lisinopril) 40 Mg Tablet, 40 MG PO DAILY for FOR HYPERTENSION, #30 Ref 0 (Reported) Entered as Reported by: NBA HUA on 11/14/182256 Last Action: Continued on 11/14/182304 by KEERTHI ALBA Pantoprazole Sodium (Protonix) 20 Mg Tablet.dr, 40 MG PO DAILY for acid reflux, (Reported) Entered as Reported by: NBA HUA on 11/14/182256 Last Action: Converted on 11/14/182304 by KEERTHI ALBA Potassium Chloride (Potassium Chloride) 10 Meq Tab.sr.24h, 10 MEQ PO DAILY for potassium replacement, (Reported) Entered as Reported by: NBA HUA on 11/14/182256 Last Action: Continued on 11/14/182304 by KEERTHI ALBA Simvastatin (Simvastatin) 40 Mg Tablet, 40 MG PO DAILY for FOR CHOLESTEROL, #30 Ref 0 (Reported) Entered as Reported by: NBA HUA on 11/14/182256 Last Action: Converted on 11/14/182304 by MIGUE TATE MD Nov 16, 2018 12:05
--- NOTE | 2018-11-16 12:11 | SNU/HH DC ---
DISCHARGE ORDERS DISCHARGE INFORMATION: DISCHARGE DATE: Nov 16, 2018 FINAL DIAGNOSIS abdominal pain CONDITION ON DISCHARGE: Stable CODE STATUS: Code Status: Full GROUP HOME: SNF STAY <30 DAYS: Yes POST DISCHARGE ORDERS: ACTIVITY ORDERS: No restrictions WEIGHT BEARING STATUS: No restrictions DIET AFTER DISCHARGE: Low Sodium 2 gm TREATMENT/EQUIPMENT ORDERS: Physical Therapy For: Evalulation/Treatment Occupational Therapy For: Evaluation/Treatment DISCHARGE MEDICATIONS: Home Meds Reported Medications Aspirin (ASPIRIN) 81 Mg Tab.chew, 1 TAB PO DAILY for hypertension, #30 TAB 3 Refills 11/14/18 Furosemide (FUROSEMIDE) 40 Mg Tablet, 1 TAB PO DAILY for hypertension, edema, # 30 TAB 5 Refills 11/14/18 Cetirizine Hcl (ALL DAY ALLERGY) 10 Mg Tablet, 10 MG PO DAILY for allergies, TAB 11/14/18 Gabapentin (GABAPENTIN ) 100 Mg Capsule, 100 MG PO TID for NEUROGENIC PAIN, CAP 11/14/18 Docusate Sodium (COLACE) 100 Mg Capsule, 1 CAP PO TID for constipation, #30 CAP 11/14/18 Alprazolam (ALPRAZOLAM) 0.25 Mg Tablet, 1 TAB PO TID for anxiety, #90 TAB 11/14/18 Carvedilol (CARVEDILOL ) 12.5 Mg Tablet, 12.5 MG PO BIDWMEALS for CARDIAC, TAB 11/14/18 Clonidine Hcl (CLONIDINE HCL) 0.1 Mg Tablet, 0.1 MG PO BID for blood pressure, TAB 11/14/18 Clonidine Hcl (CLONIDINE HCL) 0.3 Mg Tablet, 1 TAB PO BID for blood pressure, # 30 TAB 2 Refills 11/14/18 Simvastatin (SIMVASTATIN) 40 Mg Tablet, 40 MG PO DAILY for FOR CHOLESTEROL, #30 TAB 0 Refills 11/14/18 Potassium Chloride (POTASSIUM CHLORIDE) 10 Meq Tab.sr.24h, 10 MEQ PO DAILY for potassium replacement, TAB.SR 11/14/18 Amlodipine Besylate (AMLODIPINE BESYLATE) 10 Mg Tablet, 10 MG PO DAILY for high blood pressure, TAB 11/14/18 Lisinopril (LISINOPRIL) 40 Mg Tablet, 40 MG PO DAILY for FOR HYPERTENSION, #30 TAB 0 Refills 11/14/18 Pantoprazole Sodium (PROTONIX) 20 Mg Tablet.dr, 40 MG PO DAILY for acid reflux, TAB 11/14/18 MIGUE JOE MD Nov 16, 2018 12:11
[2018-11-16] MEDS ORDERED: LACTOBACILLUS RHAMNOSUS GG 1 CAPSULE. PO SCH (21:00)
== END 2018-11-16 15:35 | disposition home or self-care (01) | DRG 389 ==
LOC: 4 NORTH 21:40
PROVIDERS: ADMIT Internal Medicine; ATTEND Internal Medicine
DX: K56.600 Partial intestinal obstruction, unspecified as to cause (principal); Z68.41 Body mass index [BMI] 40.0-44.9, adult; N39.0 Urinary tract infection, site not specified; E66.9 Obesity, unspecified; I11.0 Hypertensive heart disease with heart failure; Z96.659 Presence of unspecified artificial knee joint; E86.0 Dehydration; Z91.81 History of falling; M25.569 Pain in unspecified knee; Z82.49 Family history of ischemic heart disease and other diseases of the circulatory system
CPT/HCPCS: 36415; 80053; 85025; 87641; J0696; J1650; J1885; 97116

== ENCOUNTER 2019-10-10 22:32 | Inpatient (IN) | payer MEDICARE, MEDICAID ==
[~2019-10-10] VITALS: Ht 165.1 cm; Wt 109.1 kg
[~2019-10-10 22:32] MED LIST: ALPR0.254 PO; AMLO10TA8 PO; ASPI-630 PO; CARV12.511 PO; CETI10TA PO; CLON0.1T PO; CLON0.3T PO; DOCU-109 PO; FURO40TA4 PO; GABA-585 PO; LISI-130 PO; PANT20TA2 PO; POTA10TA12 PO; SIMV40TA18 PO
[2019-10-10 22:35] VITALS: BP 150/61
[2019-10-10] MEDS ORDERED: DOCU-109 PO (23:16)
[2019-10-10] MEDS ORDERED: ALPR0.254 PO (23:16)
[2019-10-10] MEDS ORDERED: VITA1TAB19 PO (23:16)
[2019-10-10] MEDS ORDERED: CHOL3000 PO (23:16)
[2019-10-10] MEDS ORDERED: ACETAMINOPHEN 325 MG TABLET. PO PRN (23:45)
[2019-10-10] MEDS ORDERED: VANCOMYCIN 1 GM in IV DEXTROSE 5% 250 ML IV ONE (23:45)
[2019-10-10] MEDS ORDERED: ALBUTEROL SULFATE 2.5 MG/3 ML NEBU. NEB PRN (23:45)
[2019-10-10] MEDS ORDERED: LORazepam 0.5 MG TABLET PO PRN (23:45)
[2019-10-10] MEDS ORDERED: ZOLPIDEM 5 MG TABLET. PO PRN (23:45)
[2019-10-10] MEDS ORDERED: ONDANSETRON PF 4 MG/2 ML VIAL. IV PRN (23:45)
[2019-10-10] MEDS ORDERED: guaiFENesin ORAL 200 MG/10 ML LIQUID. PO PRN (23:45)
[2019-10-10] MEDS ORDERED: MORPHINE SULFATE 2 MG/ML VIAL. IV PRN (23:45)
[2019-10-10] MEDS ORDERED: IV NORMAL SALINE 1000ML BAG 1,000 ML IV SCH (23:45)
[2019-10-10] MEDS ORDERED: VANCOMYCIN PER PHARMACY MC PRN (23:45)
[2019-10-11] MEDS ORDERED: PIPERACILLIN/TAZOBACTAM 4.5 GM in IV NORMAL SALINE 100ML 100 ML IV SCH ×2
[2019-10-11 00:19] LABS: BASO % 0 % (0-3); EOS % 0 % (0-3); HEMATOCRIT 30.9 % (36.0-47.0); HEMOGLOBIN 9.8 g/dL (12.0-15.5); LYMPH # 1.1 x10^3/uL (1.0-4.8); LYMPH % 9 % (24-48); MEAN CORPUSCULAR HEMOGLOBIN 25 pg (25-35); MEAN CORPUSCULAR HGB CONC 32 g/dL (31-37); MEAN CORPUSCULAR VOLUME 78 fL (79-100); MONO # 1.3 x10^3/uL (0.0-1.1); MONO % 10 % (0-9); NEUT # 9.9 x10^3/uL (1.8-7.7); NEUT % 81 % (31-73); PLATELET COUNT 218 x10^3/uL (140-400); RED BLOOD COUNT 3.98 x10^6/uL (3.50-5.40); RED CELL DISTRIBUTION WIDTH 16.9 % (11.5-14.5); WHITE BLOOD COUNT 12.3 x10^3/uL (4.0-11.0)
[2019-10-11 00:32] LABS: ALBUMIN 2.5 g/dL (3.4-5.0); ALBUMIN/GLOBULIN RATIO 0.7 (1.0-1.7); CALCIUM 7.9 mg/dL (8.5-10.1); CREATININE 1.1 mg/dL (0.6-1.0); GFR 47.7; POTASSIUM 3.3 mmol/L (3.5-5.1); TOTAL BILIRUBIN 0.5 mg/dL (0.2-1.0); TOTAL PROTEIN 5.9 g/dL (6.4-8.2)
--- NOTE | 2019-10-11 00:36 | NUR ---
Pharmacy Vancomycin Dosing Note S:Consulted to monitor and dose vancomycin started 10/10/19. O:CHERIE MATA is a 79 year old F with Pneumonia . Height: 5 feet, 5 inches Weight: 105.9 kg Ronan Body Weight: 57.00 Adjusted Body Weight: 76.56 Dosing Weight: Actual Other Antibiotics: ZOSYN 3.375GM IV Q6H LABS: Last BUN: 26 Last Creatinine: 1.2 Creatinine Clearance: 48.4 mL/min Last WBC: 14.4 Last Procalcitonin: Tmax (past 24 hours): Microbiology: I/O: Drug Levels: Last level: on at Last dose given 10/10/19 at 1947 Vancomycin Dosing: Loading Dose: 2GRAMS LOADING DOSE AT [facility] 10/10/191946 x1 Dosing Weight: Actual Target Trough: 15-20 A: Based on: Actual WT and CrCl P: 1. 10/11/191999 Vancomycin 1500 mg IV q24h 2. Follow up Trough level on 10/12/19 at 1930 3. Pharmacy will continue to monitor, follow and adjust therapy as needed. YURI CHINCHILLA RPH, 10/11/19 0036 Signed: 10/11/19 at 0038 by YURI CHINCHILLA RPH PHA Addendum: 10/11/19 at 0046 by YURI CHINCHILLA RPH PHA 10/11/19 LAB UPDATE: BUN 25 SCR 1.1 WBC 12.3 Signed: 10/11/19 at 0046 by YURI CHINCHILLA RPH PHA
[2019-10-11] MEDS: PIPERACILLIN/TAZOBACTAM 3.375 GM in IV NORMAL SALINE 50ML 50 ML IV SCH ×4 (00:55→16:56)
[2019-10-11 03:40] VITALS: BP 156/66
[2019-10-11 07:00] VITALS: BP 177/79
[2019-10-11 08:12] LABS: INFLUENZA A PATIENT NEGATIVE (NEGATIVE); INFLUENZA B PATIENT NEGATIVE (NEGATIVE)
--- NOTE | 2019-10-11 08:54 | PDOC1 ---
History and Physical Date of Admission Date of Admission DATE: 10/11/19 TIME: 08:47 Source Source: Chart review, Patient History of Present Illness History of Present Illness she reports exacerbation of chronic abdominalpain, transferrred last night from [facility]. She was admitted 2 days ago, with worsening pain, and has vomited. vomiting and diarrhea last night. She is very hungry this AM, and is upset about not being able to eat. Past Medical History Cardiovascular: CHF, HTN Pulmonary: COPD GI: No pertinent hx Musculoskeletal: low back pain Rheumatologic: No pertinent hx Renal/: No pertinent hx Endocrine: No pertinent hx Past Surgical History Past Surgical History: Other (oopherectomy, then bowel injury, remote, ) Family History Family History: Asthma, Heart Disease Social History Smoke: Quit ALCOHOL: none Drugs: None Current Medications Current Medications Current Medications Sodium Chloride 1,000 ml @ 100 mls/hr Q10H IV Last administered on 10/11/19at 00:55; Start 10/10/19 at 23:45; Stop 10/11/19 at 08:37; Status DC Ondansetron HCl (Zofran) 4 mg PRN Q4HRS PRN IV NAUSEA/VOMITING; Start 10/10/19 at 23:45 Zolpidem Tartrate (Ambien) 5 mg PRN QHS PRN PO INSOMNIA; Start 10/10/19 at 23:45 Acetaminophen (Tylenol) 650 mg PRN Q4HRS PRN PO TEMP OVER 100.4F OR MILD PAIN; Start 10/10/19 at 23:45 Docusate Sodium (Colace) 100 mg PRN BID PRN PO CONSTIPATION; Start 10/10/19 at 23:45 Albuterol Sulfate (Ventolin Neb Soln) 2.5 mg PRN Q4HRS PRN NEB SHORTNESS OF BREATH; Start 10/10/19 at 23:45 Guaifenesin (Robitussin) 200 mg PRN Q4HRS PRN PO COUGH; Start 10/10/19 at 23:45 Lorazepam (Ativan) 0.5 mg PRN Q4HRS PRN PO ANXIETY / AGITATION; Start 10/10/19 at 23:45 Vancomycin HCl 1 gm/Dextrose 250 ml @ 250 mls/hr 1X ONCE IV ; Start 10/10/19 at 23:45; Stop 10/11/19 at 00:44; Status UNV Vancomycin HCl (Vanco Per Pharmacy) 1 each PRN DAILY PRN MC SEE COMMENTS Last administered on 10/11/19at 00:30; Start 10/10/19 at 23:45 Piperacillin Sod/ Tazobactam Sod 3.375 gm/Sodium Chloride 50 ml @ 100 mls/hr Q6HRS IV Last administered on 10/11/19at 06:18; Start 10/11/19 at 00:00 Piperacillin Sod/ Tazobactam Sod 4.5 gm/Sodium Chloride 100 ml @ 200 mls/hr Q6HRS IV ; Start 10/11/19 at 00:00; Stop 10/11/19 at 00:05; Status DC Morphine Sulfate (Morphine Sulfate) 2 mg PRN Q2HR PRN IV PAIN; Start 10/10/19 at 23:45 Vancomycin HCl 1.5 gm/Sodium Chloride 500 ml @ 250 mls/hr Q24H IV ; Start 10/11/19 at 20:00 Vancomycin HCl (Vancomycin Trough Level) 1 each 1X ONCE MC ; Start 10/12/19 at 19:30; Stop 10/12/19 at 19:31 Potassium Chloride/Dextrose/ Sod Cl 1,000 ml @ 100 mls/hr Q10H IV ; Start 10/11/19 at 08:45; Status UNV Active Scripts Active Reported Colace (Docusate Sodium) 100 Mg Capsule 1 Cap PO BIDBFRMEAL PRN PRN 30 Days Alprazolam 0.25 Mg Tablet 1 Tab PO BID B Complex (Vitamin B Complex) 1 Each Tablet 1 Tab PO DAILY 30 Days Vitamin D3 (Cholecalciferol (Vitamin D3)) 3,000 Unit Tablet 1,000 Unit PO DAILY Aspirin 81 Mg Tab.chew 1 Tab PO DAILY Furosemide 40 Mg Tablet 1 Tab PO DAILY All Day Allergy (Cetirizine Hcl) 10 Mg Tablet 10 Mg PO DAILY Carvedilol (Carvedilol) 12.5 Mg Tablet 12.5 Mg PO BIDWMEALS Clonidine Hcl 0.1 Mg Tablet 0.1 Mg PO BID Clonidine Hcl 0.3 Mg Tablet 1 Tab PO BID Simvastatin 40 Mg Tablet 40 Mg PO DAILY Potassium Chloride (Potassium Chloride) 10 Meq Tab.sr.24h 10 Meq PO DAILY Amlodipine Besylate 10 Mg Tablet 10 Mg PO DAILY Lisinopril 40 Mg Tablet 40 Mg PO DAILY Protonix (Pantoprazole Sodium) 20 Mg Tablet. 40 Mg PO DAILY Allergies Allergies: Coded Allergies: No Known Drug Allergies (Unverified , 11/14/18) ROS General: YES: Chills, Fatigue, Malaise; No: Night Sweats, Appetite, Other PSYCHOLOGICAL ROS: YES: Irritablity, Sleep disturbances Eyes: No Blurry vision, No Decreased vision, No Double vision, No Dry eyes, No Excessive tearing, No Eye Pain, No Itchy Eyes, No Loss of vision, No Photophobia, No Scotomata, No Uses contacts, No Uses glasses, No Other HEENT: No: Heacaches, Visual Changes, Hearing change, Nasal congestion, Nasal discharge, Oral lesions, Sinus pain, Sore Throat, Epistaxis, Sneezing, Snoring, Tinnitus, Vertigo, Vocal changes, Other Respiratory: No: Cough, Hemoptysis, Orthopnea, Pleuritic Pain, Shortness of breath, SOB with excertion, Sputum Changes, Stridor, Tachypnea, Wheezing, Other Cardiovascular: No Chest Pain, No Palpitations, No Orthopnea, No Paroxysmal Noc. Dyspnea, No Edema, No Lt Headedness, No Other Gastrointestinal: Yes Nausea, Yes Vomiting, Yes Abdominal Pain, Yes Diarrhea Genitourinary: No Dysuria, No Frequency, No Incontinence, No Hematuria, No Retention, No Discharge, No Urgency, No Pain, No Flank Pain, No Other, No , No , No , No , No , No , No Musculoskeletal: Yes Joint Stiffness; No Gait Disturbance, No Joint Pain, No Joint Swelling, No Muscle Pain, No Muscular Weakness, No Pain In:, No Swelling In:, No Other Neurological: Yes Gait Disturbance; No Behavorial Changes, No Bowel/Bladder ControlChng, No Confusion, No Dizziness, No Headaches, No Impaired Coord/balance, No Memory Loss, No Numbness/Tingling, No Seizures, No Speech Problems, No Tremors, No Visual Changes, No Weakness, No Other Skin: Yes Dry Skin; No Eczema, No Hair Changes, No Lumps, No Mole Changes, No Mottling, No Nail Changes, No Pruritus, No Rash, No Skin Lesion Changes, No Other, No Acne Physical Exam General: Alert, mild distress HEENT: PERRLA, EOMI, Mucous membr. moist/pink Lungs: Clear to auscultation, Normal air movement Heart: S1S2, no gallops, no murmurs Abdomen: Soft (tender, some guarding, diffuse pain, no rebound, ) Rectal Exam: not examined Extremities: No clubbing, No edema, Normal pulses, Other (bilat knee pain, s/p surg) Skin: No rashes Neuro: Normal speech, Cranial nerves 3-12 NL Vitals Vitals Vital Signs Date Time Temp Pulse Resp B/P (MAP) Pulse Ox O2 Delivery O2 Flow Rate FiO2 10/11/19 08:06 Nasal Cannula 2.0 10/11/19 03:40 98.4 95 20 156/66 (96) 92 98.4 Labs Labs Laboratory Tests Test 10/11/19 00:05 10/11/19 07:49 White Blood Count 12.3 x10^3/uL (4.0-11.0) Red Blood Count 3.98 x10^6/uL (3.50-5.40) Hemoglobin 9.8 g/dL (12.0-15.5) Hematocrit 30.9 % (36.0-47.0) Mean Corpuscular Volume 78 fL (79-100) Mean Corpuscular Hemoglobin 25 pg (25-35) Mean Corpuscular Hemoglobin Concent 32 g/dL (31-37) Red Cell Distribution Width 16.9 % (11.5-14.5) Platelet Count 218 x10^3/uL (140-400) Neutrophils (%) (Auto) 81 % (31-73) Lymphocytes (%) (Auto) 9 % (24-48) Monocytes (%) (Auto) 10 % (0-9) Eosinophils (%) (Auto) 0 % (0-3) Basophils (%) (Auto) 0 % (0-3) Neutrophils # (Auto) 9.9 x10^3/uL (1.8-7.7) Lymphocytes # (Auto) 1.1 x10^3/uL (1.0-4.8) Monocytes # (Auto) 1.3 x10^3/uL (0.0-1.1) Eosinophils # (Auto) 0.0 x10^3/uL (0.0-0.7) Basophils # (Auto) 0.0 x10^3/uL (0.0-0.2) Sodium Level 132 mmol/L (136-145) Potassium Level 3.3 mmol/L (3.5-5.1) Chloride Level 96 mmol/L (98-107) Carbon Dioxide Level 31 mmol/L (21-32) Anion Gap 5 (6-14) Blood Urea Nitrogen 25 mg/dL (7-20) Creatinine 1.1 mg/dL (0.6-1.0) Estimated GFR (Cockcroft-Gault) 47.7 BUN/Creatinine Ratio 23 (6-20) Glucose Level 109 mg/dL (70-99) Calcium Level 7.9 mg/dL (8.5-10.1) Total Bilirubin 0.5 mg/dL (0.2-1.0) Aspartate Amino Transf (AST/SGOT) 14 U/L (15-37) Alanine Aminotransferase (ALT/SGPT) 9 U/L (14-59) Alkaline Phosphatase 65 U/L (46-116) Total Protein 5.9 g/dL (6.4-8.2) Albumin 2.5 g/dL (3.4-5.0) Albumin/Globulin Ratio 0.7 (1.0-1.7) Influenza Type A Antigen Negative (NEGATIVE) Influenza Type B Antigen Negative (NEGATIVE) Laboratory Tests Test 10/11/19 00:05 10/11/19 07:49 White Blood Count 12.3 x10^3/uL (4.0-11.0) Red Blood Count 3.98 x10^6/uL (3.50-5.40) Hemoglobin 9.8 g/dL (12.0-15.5) Hematocrit 30.9 % (36.0-47.0) Mean Corpuscular Volume 78 fL (79-100) Mean Corpuscular Hemoglobin 25 pg (25-35) Mean Corpuscular Hemoglobin Concent 32 g/dL (31-37) Red Cell Distribution Width 16.9 % (11.5-14.5) Platelet Count 218 x10^3/uL (140-400) Neutrophils (%) (Auto) 81 % (31-73) Lymphocytes (%) (Auto) 9 % (24-48) Monocytes (%) (Auto) 10 % (0-9) Eosinophils (%) (Auto) 0 % (0-3) Basophils (%) (Auto) 0 % (0-3) Neutrophils # (Auto) 9.9 x10^3/uL (1.8-7.7) Lymphocytes # (Auto) 1.1 x10^3/uL (1.0-4.8) Monocytes # (Auto) 1.3 x10^3/uL (0.0-1.1) Eosinophils # (Auto) 0.0 x10^3/uL (0.0-0.7) Basophils # (Auto) 0.0 x10^3/uL (0.0-0.2) Sodium Level 132 mmol/L (136-145) Potassium Level 3.3 mmol/L (3.5-5.1) Chloride Level 96 mmol/L (98-107) Carbon Dioxide Level 31 mmol/L (21-32) Anion Gap 5 (6-14) Blood Urea Nitrogen 25 mg/dL (7-20) Creatinine 1.1 mg/dL (0.6-1.0) Estimated GFR (Cockcroft-Gault) 47.7 BUN/Creatinine Ratio 23 (6-20) Glucose Level 109 mg/dL (70-99) Calcium Level 7.9 mg/dL (8.5-10.1) Total Bilirubin 0.5 mg/dL (0.2-1.0) Aspartate Amino Transf (AST/SGOT) 14 U/L (15-37) Alanine Aminotransferase (ALT/SGPT) 9 U/L (14-59) Alkaline Phosphatase 65 U/L (46-116) Total Protein 5.9 g/dL (6.4-8.2) Albumin 2.5 g/dL (3.4-5.0) Albumin/Globulin Ratio 0.7 (1.0-1.7) Influenza Type A Antigen Negative (NEGATIVE) Influenza Type B Antigen Negative (NEGATIVE) VTE Prophylaxis Ordered VTE Prophylaxis Devices: Yes VTE Pharmacological Prophylaxi: No Assessment/Plan Assessment/Plan acute on chronic abdominal pain prior SBO, gut injury after oopherectomy obesity, BMI 39 hyponatremia severe malnutrition KEERTHI ALBA MD Oct 11, 2019 08:54
[2019-10-11] MEDS ORDERED: METOPROLOL TARTRATE 5 MG/5 ML VIAL. IVP PRN (09:00)
[2019-10-11] MEDS ORDERED: POTASSIUM CHLORIDE 10 MEQ TABLET.ER. PO SCH (09:00)
[2019-10-11] MEDS ORDERED: DOCUSATE SODIUM 100 MG CAPSULE. PO PRN (09:00)
[2019-10-11] MEDS ORDERED: cloNIDine HCL 0.3 MG TABLET PO SCH (09:00)
[2019-10-11] MEDS: VITAMIN B COMPLEX TABLET. PO SCH (09:33)
[2019-10-11] MEDS: POTASSIUM CL 20MEQ D5-0.45NACL 1,000 ML IV SCH ×2 (09:33→22:36)
[2019-10-11] MEDS: PANTOPRAZOLE 40 MG TABLET.DR. PO SCH (09:34)
[2019-10-11] MEDS: ASPIRIN CHEWABLE 81 MG TABLET. PO SCH (09:34)
[2019-10-11] MEDS: SIMVASTATIN 40 MG TABLET. PO SCH (09:34)
[2019-10-11] MEDS: amLODIPine BESYLATE 10 MG TABLET PO SCH (09:35)
[2019-10-11] MEDS: ALPRAZolam 0.25 MG TABLET PO SCH ×2 (09:35→22:35)
[2019-10-11] MEDS: CHOLECALCIFEROL (VITAMIN D3) 1,000 UNIT TABLET PO SCH (09:35)
[2019-10-11] MEDS: CETIRIZINE HCL 10 MG TABLET. PO SCH (09:35)
[2019-10-11] MEDS: cloNIDine HCL 0.1 MG TABLET PO SCH ×2 (09:37→22:35)
[2019-10-11 11:00] VITALS: BP 161/89
--- NOTE | 2019-10-11 11:30 | PDOC2 ---
GI CONSULT Reason For Consult: small bowel obstruction or wall thickening HPI: HPI: 79 y/o female sent from [facility]. Has chronic GI issues including abdominal pain and diarrhea, apparently worse since Thursday w/o precipitating events. Began after eating a green cupcake for breakfast and drinking coffee. Associated w/ vomiting "brown" which has resolved. Pain is periumbilical and constant. ?diarrhea slowing - staff observed stool w/ consistency of "soft-serve" ice cream. She's starving. Reports injury to colon 6-8 years ago @ [facility] during oophorectomy - had pa rtial colectomy w/ colostomy/takedown and VIH repair w/ mesh by Dr. Booker. Pain and diarrhea since oophorectomy. I asked what she normally takes for pain or diarrhea at home - "no one does anything for me." Can't tell me if/when has had an EGD or colonoscopy. Unaware of any GB, liver, pancreas, or PUD history. Takes ASA QD. Med list includes pantoprazole which she says she's never heard of. Denies GERD, dysphagia, hematochezia, melena, or weight loss. Specific chronic symptoms are difficult to ascertain - she goes back to telling the story of her original surgery and how she's been sick since. Labs note elevated SBC (improved), microcytic anemia, normal LFTs and lipase, and KATIUSKA (resolved). CXR on 10/[address] A/P on 10/08 showed circumferential wall thickening of much of the colon ("again evident" and "somewhat greater in the interval" - unable to view previous CTs), moderate to large quantity of stool in colon, diverticulosis, and small hiatal hernia. CT A/P on 10/09 showed small right pleural effusion and consolidative change partially visualized in left lower lobe, calcific coronary artery disease, several low-attenuative foci again seen at hepatic dome, distention of GB w/o cholecystitis, small hiatal hernia, unchanged scattered subcentimeter foci within both kidneys, diverticulosis, decreased extent of dense stool at an anastomotic site at proximal sigmoid colon w/ persistent stool in cecum and ascending colon, redemonstrated wall thickening from sigmoid through proximal transverse colon w/ slightly decreased inflammation, no small bowel obstruction, a few loops of small bowel w/ wall thickening in left lower quadrant, again inflammatory changes of body wall musculature and overlying tissues overlying location of hernia repair w/ gas along surgical mesh, fat containing hernia w/ similar surrounding fatty stranding. PMH: PMH: per chart: CAD, HTN, HLD, COPD, ?GERD, UTI, depression/anxiety, OA, peripheral neuropathy hysterectomy, oophorectomy w/ partial colectomy/colostomy/takedown, bilateral knee replacement, bilateral rotator cuff repair, VIH repair w/ mesh FH: Family History: No pertinent hx Social History: Smoke: No ALCOHOL: none Drugs: None ROS: GEN: Denies fevers, chills, sweats HEENT: Denies blurred vision, sore throat CV: Denies chest pain RESP: Denies shortness of air, cough GI: Per HPI : Denies hematuria, dysuria ENDO: Denies weight changes NEURO: Denies confusion, dizziness MSK: Denies weakness, joint pain/swelling SKIN: Denies jaundice, pruritus Vitals: Vitals: Vital Signs Date Time Temp Pulse Resp B/P (MAP) Pulse Ox O2 Delivery O2 Flow Rate FiO2 10/11/19 09:37 107 177/79 10/11/19 08:42 92 Nasal Cannula 2.0 10/11/19 07:00 99.4 20 99.4 Labs: Labs: Laboratory Tests Test 10/11/19 00:05 10/11/19 07:49 White Blood Count 12.3 x10^3/uL (4.0-11.0) Red Blood Count 3.98 x10^6/uL (3.50-5.40) Hemoglobin 9.8 g/dL (12.0-15.5) Hematocrit 30.9 % (36.0-47.0) Mean Corpuscular Volume 78 fL (79-100) Mean Corpuscular Hemoglobin 25 pg (25-35) Mean Corpuscular Hemoglobin Concent 32 g/dL (31-37) Red Cell Distribution Width 16.9 % (11.5-14.5) Platelet Count 218 x10^3/uL (140-400) Neutrophils (%) (Auto) 81 % (31-73) Lymphocytes (%) (Auto) 9 % (24-48) Monocytes (%) (Auto) 10 % (0-9) Eosinophils (%) (Auto) 0 % (0-3) Basophils (%) (Auto) 0 % (0-3) Neutrophils # (Auto) 9.9 x10^3/uL (1.8-7.7) Lymphocytes # (Auto) 1.1 x10^3/uL (1.0-4.8) Monocytes # (Auto) 1.3 x10^3/uL (0.0-1.1) Eosinophils # (Auto) 0.0 x10^3/uL (0.0-0.7) Basophils # (Auto) 0.0 x10^3/uL (0.0-0.2) Sodium Level 132 mmol/L (136-145) Potassium Level 3.3 mmol/L (3.5-5.1) Chloride Level 96 mmol/L (98-107) Carbon Dioxide Level 31 mmol/L (21-32) Anion Gap 5 (6-14) Blood Urea Nitrogen 25 mg/dL (7-20) Creatinine 1.1 mg/dL (0.6-1.0) Estimated GFR (Cockcroft-Gault) 47.7 BUN/Creatinine Ratio 23 (6-20) Glucose Level 109 mg/dL (70-99) Calcium Level 7.9 mg/dL (8.5-10.1) Total Bilirubin 0.5 mg/dL (0.2-1.0) Aspartate Amino Transf (AST/SGOT) 14 U/L (15-37) Alanine Aminotransferase (ALT/SGPT) 9 U/L (14-59) Alkaline Phosphatase 65 U/L (46-116) Total Protein 5.9 g/dL (6.4-8.2) Albumin 2.5 g/dL (3.4-5.0) Albumin/Globulin Ratio 0.7 (1.0-1.7) Influenza Type A Antigen Negative (NEGATIVE) Influenza Type B Antigen Negative (NEGATIVE) Allergies: Coded Allergies: No Known Drug Allergies (Unverified , 11/14/18) Medications: Current Medications Medications (Trade) Dose Ordered Sig/Mayank Route PRN Reason Start Time Stop Time Status Last Admin Dose Admin Sodium Chloride 1,000 ml @ 100 mls/hr Q10H IV 10/10/19 23:45 10/11/19 08:37 DC 10/11/19 00:55 Vancomycin HCl (Vanco Per Pharmacy) 1 each PRN DAILY PRN MC SEE COMMENTS 10/10/19 23:45 10/11/19 00:30 Piperacillin Sod/ Tazobactam Sod 3.375 gm/Sodium Chloride 50 ml @ 100 mls/hr Q6HRS IV 10/11/19 00:00 10/11/19 06:18 Potassium Chloride/Dextrose/ Sod Cl 1,000 ml @ 100 mls/hr Q10H IV 10/11/19 08:45 10/11/19 09:33 Alprazolam (Xanax) 0.25 mg BID PO 10/11/19 09:00 10/11/19 09:35 Amlodipine Besylate (Norvasc) 10 mg DAILY PO 10/11/19 09:00 10/11/19 09:35 Aspirin (Children'S Aspirin) 81 mg DAILY PO 10/11/19 09:00 10/11/19 09:34 Cetirizine HCl (ZyrTEC) 10 mg DAILY PO 10/11/19 09:00 10/11/19 09:35 Clonidine HCl (Catapres) 0.1 mg BID PO 10/11/19 09:00 10/11/19 09:37 Potassium Chloride (Klor-Con) 10 meq DAILY PO 10/11/19 09:00 10/11/19 09:34 Simvastatin (Zocor) 40 mg DAILY PO 10/11/19 09:00 10/11/19 09:34 Vitamin B Complex (Wenceslao B) 1 tab DAILY PO 10/11/19 09:00 10/11/19 09:33 Vitamin D (Vitamin D3) 1,000 unit DAILY PO 10/11/19 09:00 10/11/19 09:35 Pantoprazole Sodium (Protonix) 40 mg DAILYAC PO 10/11/19 09:00 10/11/19 09:34 Imaging: Imaging: As above. PE: GEN: NAD HEENT: Atraumatic, PERRL LUNGS: CTAB anteriorly HEART: RRR ABD: NABS, soft w/ firm-maxi round area upper left periumbilical region EXTREMITY: trace BLE edema SKIN: No rashes, no jaundice NEURO/PSYCH: A & O 3 A/P: A/P: Vomiting, abd pain, diarrhea Leukocytosis (better), microcytic anemia Abnormal CT - wall thickening of colon ?and small bowel ?GERD on PPI CRC screen - unclear S/p partial colectomy w/ ostomy/takedown S/p VIH repair w/ mesh Diverticulosis CAD on ASA -- Chronic issues worse recently, history challenging. ?really having diarrhea - CTs w/ chronic findings and lots of stool... Doubt SBO - no longer vomiting, having soft stools, and imaging not suggestive of this. Try clears, ADAT. Continue PPI. Check anemia parameters. ADDIS HERNANDEZ Oct 11, 2019 11:30
[2019-10-11] MEDS ORDERED: DICYCLOMINE HCL 10 MG CAPSULE PO PRN (12:45)
--- NOTE | 2019-10-11 14:08 | NUR ---
SS following for discharge planning. SS reviewed pt chart. Pt is from [facility] ([facility]) and is currently requiring oxygen. SS will continue to follow for discharge planning.
[2019-10-11 15:00] VITALS: BP 160/77
[2019-10-11] MEDS: CARVEDILOL 12.5 MG TABLET. PO SCH (16:13)
[2019-10-11 19:25] VITALS: BP 162/67
[2019-10-11] MEDS ORDERED: VANCOMYCIN 1.5 GM in IV NORMAL SALINE 500ML BAG 500 ML IV SCH (20:00)
[2019-10-11] MEDS: LACTOBACILLUS RHAMNOSUS GG 1 CAPSULE. PO SCH (22:34)
[2019-10-11] MEDS: POLYETHYLENE GLYCOL 3350 17 GM PACKET. PO SCH (22:34)
[2019-10-11 23:20] VITALS: BP 118/65
[2019-10-12] MEDS: PIPERACILLIN/TAZOBACTAM 3.375 GM in IV NORMAL SALINE 50ML 50 ML IV SCH ×4 (00:24→18:33)
[2019-10-12 03:35] VITALS: BP 136/60
[2019-10-12 05:32] LABS: BASO # 0.1 x10^3/uL (0.0-0.2); BASO % 1 % (0-3); EOS # 0.1 x10^3/uL (0.0-0.7); EOS % 1 % (0-3); HEMATOCRIT 29.2 % (36.0-47.0); HEMOGLOBIN 9.4 g/dL (12.0-15.5); LYMPH # 1.4 x10^3/uL (1.0-4.8); LYMPH % 17 % (24-48); MEAN CORPUSCULAR HEMOGLOBIN 25 pg (25-35); MEAN CORPUSCULAR HGB CONC 32 g/dL (31-37); MEAN CORPUSCULAR VOLUME 78 fL (79-100); MONO % 11 % (0-9); NEUT # 6.1 x10^3/uL (1.8-7.7); NEUT % 71 % (31-73); PLATELET COUNT 209 x10^3/uL (140-400); RED BLOOD COUNT 3.76 x10^6/uL (3.50-5.40); RED CELL DISTRIBUTION WIDTH 16.7 % (11.5-14.5); WHITE BLOOD COUNT 8.6 x10^3/uL (4.0-11.0)
[2019-10-12 06:36] LABS: ALBUMIN 2.3 g/dL (3.4-5.0); ALBUMIN/GLOBULIN RATIO 0.7 (1.0-1.7); CALCIUM 7.8 mg/dL (8.5-10.1); CREATININE 0.8 mg/dL (0.6-1.0); GFR 68.8; POTASSIUM 3.3 mmol/L (3.5-5.1); TOTAL BILIRUBIN 0.4 mg/dL (0.2-1.0); TOTAL PROTEIN 5.6 g/dL (6.4-8.2)
[2019-10-12 07:00] VITALS: BP 160/70
[2019-10-12] MEDS: POTASSIUM CL 20MEQ D5-0.45NACL 1,000 ML IV SCH ×2 (07:16→18:32)
--- NOTE | 2019-10-12 08:28 | PDOC ---
[employer] PROGRESS NOTE History of Present Illness History of Present Illness 10/12/2019 Pt seen and examined Chart reviewed Discussed care w/ RN No new complaints or overnight events Vitals/I&O Vitals/I&O: Vital Signs Date Time Temp Pulse Resp B/P (MAP) Pulse Ox O2 Delivery O2 Flow Rate FiO2 10/12/19 03:35 98.3 85 20 136/60 (85) 96 Nasal Cannula 2.0 98.3 I & O 10/11/19 10/11/19 10/12/19 15:00 23:00 07:00 Intake Total 1166 ml 200 ml Output Total 950 ml 626 ml 800 ml Balance -950 ml 540 ml -600 ml Physical Exam General: Alert, mild distress Heart: Regular rate, Normal S1 Lungs: Clear Abdomen: Soft (tender, some guarding, diffuse pain, no rebound, ) Extremities: No clubbing, No edema, Normal pulses, Other (bilat knee pain, s/p surg) Skin: No rashes Labs Labs: Laboratory Tests Test 10/12/19 04:04 White Blood Count 8.6 x10^3/uL (4.0-11.0) Red Blood Count 3.76 x10^6/uL (3.50-5.40) Hemoglobin 9.4 g/dL (12.0-15.5) Hematocrit 29.2 % (36.0-47.0) Mean Corpuscular Volume 78 fL (79-100) Mean Corpuscular Hemoglobin 25 pg (25-35) Mean Corpuscular Hemoglobin Concent 32 g/dL (31-37) Red Cell Distribution Width 16.7 % (11.5-14.5) Platelet Count 209 x10^3/uL (140-400) Neutrophils (%) (Auto) 71 % (31-73) Lymphocytes (%) (Auto) 17 % (24-48) Monocytes (%) (Auto) 11 % (0-9) Eosinophils (%) (Auto) 1 % (0-3) Basophils (%) (Auto) 1 % (0-3) Neutrophils # (Auto) 6.1 x10^3/uL (1.8-7.7) Lymphocytes # (Auto) 1.4 x10^3/uL (1.0-4.8) Monocytes # (Auto) 1.0 x10^3/uL (0.0-1.1) Eosinophils # (Auto) 0.1 x10^3/uL (0.0-0.7) Basophils # (Auto) 0.1 x10^3/uL (0.0-0.2) Sodium Level 133 mmol/L (136-145) Potassium Level 3.3 mmol/L (3.5-5.1) Chloride Level 98 mmol/L (98-107) Carbon Dioxide Level 35 mmol/L (21-32) Anion Gap 0 (6-14) Blood Urea Nitrogen 13 mg/dL (7-20) Creatinine 0.8 mg/dL (0.6-1.0) Estimated GFR (Cockcroft-Gault) 68.8 BUN/Creatinine Ratio 16 (6-20) Glucose Level 104 mg/dL (70-99) Calcium Level 7.8 mg/dL (8.5-10.1) Total Bilirubin 0.4 mg/dL (0.2-1.0) Aspartate Amino Transf (AST/SGOT) 11 U/L (15-37) Alanine Aminotransferase (ALT/SGPT) 10 U/L (14-59) Alkaline Phosphatase 57 U/L (46-116) Total Protein 5.6 g/dL (6.4-8.2) Albumin 2.3 g/dL (3.4-5.0) Albumin/Globulin Ratio 0.7 (1.0-1.7) Review of Systems Review of Systems: GEN: No abnormal weight changes CV: No chest pain, palpitations PULM: Yes sob, cough Assessment and Plan Assessmemt and Plan ASSESSMENT: acute on chronic abdominal pain prior SBO, gut injury after oopherectomy obesity, BMI 39 hyponatremia severe malnutrition PLAN: GI Consult GI input appreciated Trend Labs PT/OT Home MEds IVF Abdominal imaging Pepcid, Omeprazole, Bentyl PRN Leave PO status/advancement of diet to GI discretion Comment Review of Relevant I have reviewed the following items sheng (where applicable) has been applied. Medications: Current Medications Medications (Trade) Dose Ordered Sig/Mayank Route PRN Reason Start Time Stop Time Status Last Admin Dose Admin Potassium Chloride/Dextrose/ Sod Cl 1,000 ml @ 100 mls/hr Q10H IV 10/11/19 08:45 10/12/19 07:16 Alprazolam (Xanax) 0.25 mg BID PO 10/11/19 09:00 10/11/19 22:35 Amlodipine Besylate (Norvasc) 10 mg DAILY PO 10/11/19 09:00 10/11/19 09:35 Aspirin (Children'S Aspirin) 81 mg DAILY PO 10/11/19 09:00 10/11/19 09:34 Carvedilol (Coreg) 12.5 mg BIDWMEALS PO 10/11/19 17:00 10/11/19 16:13 Cetirizine HCl (ZyrTEC) 10 mg DAILY PO 10/11/19 09:00 10/11/19 09:35 Clonidine HCl (Catapres) 0.1 mg BID PO 10/11/19 09:00 10/11/19 22:35 Potassium Chloride (Klor-Con) 10 meq DAILY PO 10/11/19 09:00 10/11/19 12:46 DC 10/11/19 09:34 Simvastatin (Zocor) 40 mg DAILY PO 10/11/19 09:00 10/11/19 09:34 Vitamin B Complex (Wenceslao B) 1 tab DAILY PO 10/11/19 09:00 10/11/19 09:33 Vitamin D (Vitamin D3) 1,000 unit DAILY PO 10/11/19 09:00 10/11/19 09:35 Pantoprazole Sodium (Protonix) 40 mg DAILYAC PO 10/11/19 09:00 10/11/19 09:34 Metoprolol Tartrate (Lopressor Vial) 5 mg PRN Q6HRS PRN IVP HYPERTENSION 10/11/19 09:00 10/11/19 12:16 Lactobacillus Rhamnosus (Culturelle) 1 cap BID PO 10/11/19 21:00 10/11/19 22:34 Polyethylene Glycol (miraLAX PACKET) 17 gm BID PO 10/11/19 21:00 10/11/19 22:34 BASILIO BRUMFIELD III DO Oct 12, 2019 08:28
--- NOTE | 2019-10-12 08:51 | PDOC ---
Subjective: Subjective: "I want to go home." I asked if she was eating - "you have to have it to eat it" - apparently unaware her breakfast tray was delivered. Denies vomiting. Says she has stooled. Tired - "honey you know nobody sleeps in the hospital." Objective: Objective: D/w nurse - no stools after I saw yesterday. Vital Signs: Vital Signs Date Time Temp Pulse Resp B/P (MAP) Pulse Ox O2 Delivery O2 Flow Rate FiO2 10/12/19 03:35 98.3 85 20 136/60 (85) 96 Nasal Cannula 2.0 98.3 Labs: Laboratory Tests Test 10/12/19 04:04 White Blood Count 8.6 x10^3/uL Red Blood Count 3.76 x10^6/uL Hemoglobin 9.4 g/dL Hematocrit 29.2 % Mean Corpuscular Volume 78 fL Mean Corpuscular Hemoglobin 25 pg Mean Corpuscular Hemoglobin Concent 32 g/dL Red Cell Distribution Width 16.7 % Platelet Count 209 x10^3/uL Neutrophils (%) (Auto) 71 % Lymphocytes (%) (Auto) 17 % Monocytes (%) (Auto) 11 % Eosinophils (%) (Auto) 1 % Basophils (%) (Auto) 1 % Neutrophils # (Auto) 6.1 x10^3/uL Lymphocytes # (Auto) 1.4 x10^3/uL Monocytes # (Auto) 1.0 x10^3/uL Eosinophils # (Auto) 0.1 x10^3/uL Basophils # (Auto) 0.1 x10^3/uL Sodium Level 133 mmol/L Potassium Level 3.3 mmol/L Chloride Level 98 mmol/L Carbon Dioxide Level 35 mmol/L Anion Gap 0 Blood Urea Nitrogen 13 mg/dL Creatinine 0.8 mg/dL Estimated GFR (Cockcroft-Gault) 68.8 BUN/Creatinine Ratio 16 Glucose Level 104 mg/dL Calcium Level 7.8 mg/dL Total Bilirubin 0.4 mg/dL Aspartate Amino Transf (AST/SGOT) 11 U/L Alanine Aminotransferase (ALT/SGPT) 10 U/L Alkaline Phosphatase 57 U/L Total Protein 5.6 g/dL Albumin 2.3 g/dL Albumin/Globulin Ratio 0.7 BLOOD CULTURE Preliminary NO GROWTH AFTER 1 DAY PE: GEN: NAD, was asleep, doesn't open eyes during interview LUNGS: CTAB anteriorly HEART: RRR ABD: vaguely tender throughout, quiet BS NEURO/PSYCH: A & O 3, drowsy A/P: Chronic abd pain, irregular bowel habits/history of constipation - retained stool and "inflammation" on CT DOMINGO S/p partial colectomy w/ ostomy/takedown and VIH repair w/ mesh -- Advance to full liquids, ADAT - d/w nurse. Continue Miralax, try Dulcolax, consider Mag Citrate. Use Bentyl PRN - d/w nurse. Consider outpt colonoscopy pending Dr. Choudhury's recs. Hemodynamically unstable?: No Is patient in severe pain?: No Is NPO status required?: No ADDIS HERNANDEZ Oct 12, 2019 08:51
[2019-10-12] MEDS: PANTOPRAZOLE 40 MG TABLET.DR. PO SCH (08:55)
[2019-10-12] MEDS: ALPRAZolam 0.25 MG TABLET PO SCH ×2 (08:55→21:00)
[2019-10-12] MEDS: LACTOBACILLUS RHAMNOSUS GG 1 CAPSULE. PO SCH ×2 (08:55→21:36)
[2019-10-12] MEDS: cloNIDine HCL 0.1 MG TABLET PO SCH ×2 (08:55→21:37)
[2019-10-12] MEDS: CARVEDILOL 12.5 MG TABLET. PO SCH ×2 (08:55→18:33)
[2019-10-12] MEDS: VITAMIN B COMPLEX TABLET. PO SCH (08:55)
[2019-10-12] MEDS: DOCUSATE SODIUM 100 MG CAPSULE. PO PRN ×2 (08:56→21:36)
[2019-10-12] MEDS: CHOLECALCIFEROL (VITAMIN D3) 1,000 UNIT TABLET PO SCH (08:56)
[2019-10-12] MEDS: SIMVASTATIN 40 MG TABLET. PO SCH (08:56)
[2019-10-12] MEDS: ASPIRIN CHEWABLE 81 MG TABLET. PO SCH (08:56)
[2019-10-12] MEDS: POTASSIUM BICARB 20 MEQ EFFERVESCENT TABLET. PO SCH (08:56)
[2019-10-12] MEDS: CETIRIZINE HCL 10 MG TABLET. PO SCH (08:56)
[2019-10-12] MEDS: amLODIPine BESYLATE 10 MG TABLET PO SCH (08:57)
[2019-10-12] MEDS: POLYETHYLENE GLYCOL 3350 17 GM PACKET. PO SCH ×2 (08:57→21:37)
[2019-10-12] MEDS ORDERED: BISACODYL 5 MG TABLET.DR. PO ONE (09:00)
[2019-10-12 11:00] VITALS: BP 126/60
--- NOTE | 2019-10-12 12:24 | PDOC2 ---
CONSULT Date of Consult Date of Consult DATE: 10/12/19 TIME: 12:22 Reason for Consult Reason for Consult: Abdominal pain Identification/Chief Complaint Chief Complaint Abdominal pain with diarrhea Source Source: Chart review, Patient History of Present Illness Reason for Visit: 79-year-old female is mated the hospital with abdominal pain diarrhea abnormal CT scan showing dilated loops of small bowel concerning for obstruction. Currently she is resting comfortably in chair has been tolerating clear liquids continues to have loose stools Past Medical History Cardiovascular: CHF, HTN Pulmonary: COPD GI: No pertinent hx Musculoskeletal: low back pain Rheumatologic: No pertinent hx Renal/: No pertinent hx Endocrine: No pertinent hx Past Surgical History Past Surgical History: Other (oopherectomy, then bowel injury, remote, ) Family History Family History: Asthma, Heart Disease Social History No ALCOHOL: none Drugs: None Current Medications Current Medications Current Medications Sodium Chloride 1,000 ml @ 100 mls/hr Q10H IV Last administered on 10/11/19at 00:55; Start 10/10/19 at 23:45; Stop 10/11/19 at 08:37; Status DC Ondansetron HCl (Zofran) 4 mg PRN Q4HRS PRN IV NAUSEA/VOMITING; Start 10/10/19 at 23:45 Zolpidem Tartrate (Ambien) 5 mg PRN QHS PRN PO INSOMNIA; Start 10/10/19 at 23:45 Acetaminophen (Tylenol) 650 mg PRN Q4HRS PRN PO TEMP OVER 100.4F OR MILD PAIN; Start 10/10/19 at 23:45 Docusate Sodium (Colace) 100 mg PRN BID PRN PO CONSTIPATION Last administered on 10/12/19at 08:56; Start 10/10/19 at 23:45 Albuterol Sulfate (Ventolin Neb Soln) 2.5 mg PRN Q4HRS PRN NEB SHORTNESS OF BREATH Last administered on 10/11/19at 12:34; Start 10/10/19 at 23:45 Guaifenesin (Robitussin) 200 mg PRN Q4HRS PRN PO COUGH; Start 10/10/19 at 23:45 Lorazepam (Ativan) 0.5 mg PRN Q4HRS PRN PO ANXIETY / AGITATION; Start 10/10/19 at 23:45 Vancomycin HCl 1 gm/Dextrose 250 ml @ 250 mls/hr 1X ONCE IV ; Start 10/10/19 at 23:45; Stop 10/11/19 at 00:44; Status UNV Vancomycin HCl (Vanco Per Pharmacy) 1 each PRN DAILY PRN MC SEE COMMENTS Last administered on 10/11/19at 00:30; Start 10/10/19 at 23:45; Stop 10/11/19 at 13:28; Status DC Piperacillin Sod/ Tazobactam Sod 3.375 gm/Sodium Chloride 50 ml @ 100 mls/hr Q6HRS IV Last administered on 10/12/19at 05:24; Start 10/11/19 at 00:00 Piperacillin Sod/ Tazobactam Sod 4.5 gm/Sodium Chloride 100 ml @ 200 mls/hr Q6HRS IV ; Start 10/11/19 at 00:00; Stop 10/11/19 at 00:05; Status DC Morphine Sulfate (Morphine Sulfate) 2 mg PRN Q2HR PRN IV PAIN; Start 10/10/19 at 23:45 Vancomycin HCl 1.5 gm/Sodium Chloride 500 ml @ 250 mls/hr Q24H IV ; Start 10/11/19 at 20:00; Stop 10/11/19 at 13:24; Status DC Vancomycin HCl (Vancomycin Trough Level) 1 each 1X ONCE MC ; Start 10/12/19 at 19:30; Stop 10/11/19 at 13:28; Status DC Potassium Chloride/Dextrose/ Sod Cl 1,000 ml @ 100 mls/hr Q10H IV Last administered on 10/12/19at 07:16; Start 10/11/19 at 08:45 Alprazolam (Xanax) 0.25 mg BID PO Last administered on 10/12/19at 08:55; Start 10/11/19 at 09:00 Amlodipine Besylate (Norvasc) 10 mg DAILY PO Last administered on 10/12/19at 08:57; Start 10/11/19 at 09:00 Aspirin (Children'S Aspirin) 81 mg DAILY PO Last administered on 10/12/19at 08:56; Start 10/11/19 at 09:00 Carvedilol (Coreg) 12.5 mg BIDWMEALS PO Last administered on 10/12/19at 08:55; Start 10/11/19 at 17:00 Cetirizine HCl (ZyrTEC) 10 mg DAILY PO Last administered on 10/12/19 08:56; Start 10/11/19 at 09:00 Clonidine HCl (Catapres) 0.1 mg BID PO Last administered on 10/12/19 08:55; Start 10/11/19 at 09:00 Clonidine HCl (Catapres) 0.3 mg BID PO ; Start 10/11/19 at 09:00; Stop 10/11/19 at 09:16; Status DC Docusate Sodium (Colace) 100 mg BIDBFRMEAL PRN PRN PO CONSTIPATION; Start 10/11/19 at 09:00; Status Cancel Potassium Chloride (Klor-Con) 10 meq DAILY PO Last administered on 10/11/19 09:34; Start 10/11/19 at 09:00; Stop 10/11/19 at 12:46; Status DC Simvastatin (Zocor) 40 mg DAILY PO Last administered on 10/12/19 08:56; Start 10/11/19 at 09:00 Vitamin B Complex (Wenceslao B) 1 tab DAILY PO Last administered on 10/12/19 08:55; Start 10/11/19 at 09:00 Vitamin D (Vitamin D3) 1,000 unit DAILY PO Last administered on 10/12/19 08:56; Start 10/11/19 at 09:00 Pantoprazole Sodium (Protonix) 40 mg DAILYAC PO Last administered on 10/12/19 08:55; Start 10/11/19 at 09:00 Metoprolol Tartrate (Lopressor Vial) 5 mg PRN Q6HRS PRN IVP HYPERTENSION Last administered on 10/11/19at 12:16; Start 10/11/19 at 09:00 Lactobacillus Rhamnosus (Culturelle) 1 cap BID PO Last administered on 10/12/19 08:55; Start 10/11/19 at 21:00 Polyethylene Glycol (miraLAX PACKET) 17 gm BID PO Last administered on 10/12/19 08:57; Start 10/11/19 at 21:00 Dicyclomine HCl (Bentyl) 10 mg PRN TID PRN PO abd pain; Start 10/11/19 at 12:45 Potassium Bicarbonate (Potassium Effervescent Tablet) 10 meq DAILY PO Last administered on 3/11/20at 08:56; Start 10/12/19 at 09:00 Bisacodyl (Dulcolax Tab) 10 mg 1X ONCE PO Last administered on 10/12/19at 08:59; Start 10/12/19 at 09:00; Stop 10/12/19 at 09:04; Status DC Active Scripts Active Reported Colace (Docusate Sodium) 100 Mg Capsule 1 Cap PO BIDBFRMEAL PRN PRN 30 Days Alprazolam 0.25 Mg Tablet 1 Tab PO BID Vitamin D3 (Cholecalciferol (Vitamin D3)) 3,000 Unit Tablet 1,000 Unit PO DAILY Aspirin 81 Mg Tab.chew 1 Tab PO DAILY Furosemide 40 Mg Tablet 1 Tab PO DAILY All Day Allergy (Cetirizine Hcl) 10 Mg Tablet 10 Mg PO DAILY Carvedilol (Carvedilol) 12.5 Mg Tablet 12.5 Mg PO BIDWMEALS Clonidine Hcl 0.1 Mg Tablet 0.1 Mg PO BID Clonidine Hcl 0.3 Mg Tablet 1 Tab PO BID Simvastatin 40 Mg Tablet 40 Mg PO DAILY Potassium Chloride (Potassium Chloride) 10 Meq Tab.sr.24h 10 Meq PO DAILY Amlodipine Besylate 10 Mg Tablet 10 Mg PO DAILY Lisinopril 40 Mg Tablet 40 Mg PO DAILY Protonix (Pantoprazole Sodium) 20 Mg Tablet.dr 40 Mg PO DAILY Allergies Allergies: Coded Allergies: No Known Drug Allergies (Unverified , 11/14/18) ROS Gastrointestinal: Yes Nausea, Yes Abdominal Pain, Yes Diarrhea Physical Exam General: Alert, Oriented X3, Cooperative, No acute distress HEENT: Atraumatic, PERRLA, EOMI Lungs: Clear to auscultation, Normal air movement Heart: Regular rate, No murmurs Abdomen: Normal bowel sounds, Soft, Other (mild a tender palpation in the midline) Extremities: No edema Skin: No significant lesion Neuro: Normal speech Psych/Mental Status: Mental status NL Vitals VITALS Vital Signs Date Time Temp Pulse Resp B/P (MAP) Pulse Ox O2 Delivery O2 Flow Rate FiO2 10/12/19 11:00 98.9 80 16 126/60 (82) 94 Nasal Cannula 2.0 98.9 Labs Labs Laboratory Tests Test 10/11/19 00:05 10/11/19 07:49 10/12/19 04:04 White Blood Count 12.3 x10^3/uL (4.0-11.0) 8.6 x10^3/uL (4.0-11.0) Red Blood Count 3.98 x10^6/uL (3.50-5.40) 3.76 x10^6/uL (3.50-5.40) Hemoglobin 9.8 g/dL (12.0-15.5) 9.4 g/dL (12.0-15.5) Hematocrit 30.9 % (36.0-47.0) 29.2 % (36.0-47.0) Mean Corpuscular Volume 78 fL (79-100) 78 fL (79-100) Mean Corpuscular Hemoglobin 25 pg (25-35) 25 pg (25-35) Mean Corpuscular Hemoglobin Concent 32 g/dL (31-37) 32 g/dL (31-37) Red Cell Distribution Width 16.9 % (11.5-14.5) 16.7 % (11.5-14.5) Platelet Count 218 x10^3/uL (140-400) 209 x10^3/uL (140-400) Neutrophils (%) (Auto) 81 % (31-73) 71 % (31-73) Lymphocytes (%) (Auto) 9 % (24-48) 17 % (24-48) Monocytes (%) (Auto) 10 % (0-9) 11 % (0-9) Eosinophils (%) (Auto) 0 % (0-3) 1 % (0-3) Basophils (%) (Auto) 0 % (0-3) 1 % (0-3) Neutrophils # (Auto) 9.9 x10^3/uL (1.8-7.7) 6.1 x10^3/uL (1.8-7.7) Lymphocytes # (Auto) 1.1 x10^3/uL (1.0-4.8) 1.4 x10^3/uL (1.0-4.8) Monocytes # (Auto) 1.3 x10^3/uL (0.0-1.1) 1.0 x10^3/uL (0.0-1.1) Eosinophils # (Auto) 0.0 x10^3/uL (0.0-0.7) 0.1 x10^3/uL (0.0-0.7) Basophils # (Auto) 0.0 x10^3/uL (0.0-0.2) 0.1 x10^3/uL (0.0-0.2) Sodium Level 132 mmol/L (136-145) 133 mmol/L (136-145) Potassium Level 3.3 mmol/L (3.5-5.1) 3.3 mmol/L (3.5-5.1) Chloride Level 96 mmol/L (98-107) 98 mmol/L (98-107) Carbon Dioxide Level 31 mmol/L (21-32) 35 mmol/L (21-32) Anion Gap 5 (6-14) 0 (6-14) Blood Urea Nitrogen 25 mg/dL (7-20) 13 mg/dL (7-20) Creatinine 1.1 mg/dL (0.6-1.0) 0.8 mg/dL (0.6-1.0) Estimated GFR (Cockcroft-Gault) 47.7 68.8 BUN/Creatinine Ratio 23 (6-20) 16 (6-20) Glucose Level 109 mg/dL (70-99) 104 mg/dL (70-99) Calcium Level 7.9 mg/dL (8.5-10.1) 7.8 mg/dL (8.5-10.1) Iron Level 9 ug/dL (50-170) Total Iron Binding Capacity 260 ug/dL (250-450) Iron Saturation 3 % (15-34) Total Bilirubin 0.5 mg/dL (0.2-1.0) 0.4 mg/dL (0.2-1.0) Aspartate Amino Transf (AST/SGOT) 14 U/L (15-37) 11 U/L (15-37) Alanine Aminotransferase (ALT/SGPT) 9 U/L (14-59) 10 U/L (14-59) Alkaline Phosphatase 65 U/L (46-116) 57 U/L (46-116) Total Protein 5.9 g/dL (6.4-8.2) 5.6 g/dL (6.4-8.2) Albumin 2.5 g/dL (3.4-5.0) 2.3 g/dL (3.4-5.0) Albumin/Globulin Ratio 0.7 (1.0-1.7) 0.7 (1.0-1.7) Vitamin B12 Level 727 pg/mL (247-911) Influenza Type A Antigen Negative (NEGATIVE) Influenza Type B Antigen Negative (NEGATIVE) Laboratory Tests Test 10/12/19 04:04 White Blood Count 8.6 x10^3/uL (4.0-11.0) Red Blood Count 3.76 x10^6/uL (3.50-5.40) Hemoglobin 9.4 g/dL (12.0-15.5) Hematocrit 29.2 % (36.0-47.0) Mean Corpuscular Volume 78 fL (79-100) Mean Corpuscular Hemoglobin 25 pg (25-35) Mean Corpuscular Hemoglobin Concent 32 g/dL (31-37) Red Cell Distribution Width 16.7 % (11.5-14.5) Platelet Count 209 x10^3/uL (140-400) Neutrophils (%) (Auto) 71 % (31-73) Lymphocytes (%) (Auto) 17 % (24-48) Monocytes (%) (Auto) 11 % (0-9) Eosinophils (%) (Auto) 1 % (0-3) Basophils (%) (Auto) 1 % (0-3) Neutrophils # (Auto) 6.1 x10^3/uL (1.8-7.7) Lymphocytes # (Auto) 1.4 x10^3/uL (1.0-4.8) Monocytes # (Auto) 1.0 x10^3/uL (0.0-1.1) Eosinophils # (Auto) 0.1 x10^3/uL (0.0-0.7) Basophils # (Auto) 0.1 x10^3/uL (0.0-0.2) Sodium Level 133 mmol/L (136-145) Potassium Level 3.3 mmol/L (3.5-5.1) Chloride Level 98 mmol/L (98-107) Carbon Dioxide Level 35 mmol/L (21-32) Anion Gap 0 (6-14) Blood Urea Nitrogen 13 mg/dL (7-20) Creatinine 0.8 mg/dL (0.6-1.0) Estimated GFR (Cockcroft-Gault) 68.8 BUN/Creatinine Ratio 16 (6-20) Glucose Level 104 mg/dL (70-99) Calcium Level 7.8 mg/dL (8.5-10.1) Total Bilirubin 0.4 mg/dL (0.2-1.0) Aspartate Amino Transf (AST/SGOT) 11 U/L (15-37) Alanine Aminotransferase (ALT/SGPT) 10 U/L (14-59) Alkaline Phosphatase 57 U/L (46-116) Total Protein 5.6 g/dL (6.4-8.2) Albumin 2.3 g/dL (3.4-5.0) Albumin/Globulin Ratio 0.7 (1.0-1.7) Images Images T reviewed from [place] showing some dilated loops of small bowel also some inflammatory changes around her mesh no recurrent hernia Assessment/Plan Assessment/Plan Abdominal pain with diarrhea likely enteritis treated medically advanced diet as tolerated no surgical plans DANICA MEYERS MD Oct 12, 2019 12:24
[2019-10-12 15:00] VITALS: BP 147/70
[2019-10-12 19:00] VITALS: BP 142/63
[2019-10-12] MEDS ORDERED: DICLOFENAC SODIUM 1% TOPICAL GEL 100GM TUBE. TP SCH (21:00)
[2019-10-12 23:00] VITALS: BP 140/64
[2019-10-13] MEDS: PIPERACILLIN/TAZOBACTAM 3.375 GM in IV NORMAL SALINE 50ML 50 ML IV SCH ×3 (01:02→12:00)
[2019-10-13 03:00] VITALS: BP 145/67
[2019-10-13] MEDS: POTASSIUM CL 20MEQ D5-0.45NACL 1,000 ML IV SCH ×2 (06:01→10:45)
[2019-10-13 07:00] VITALS: BP 163/71
[2019-10-13] MEDS: PANTOPRAZOLE 40 MG TABLET.DR. PO SCH (08:43)
[2019-10-13] MEDS: LACTOBACILLUS RHAMNOSUS GG 1 CAPSULE. PO SCH (08:43)
[2019-10-13] MEDS: SIMVASTATIN 40 MG TABLET. PO SCH (08:43)
[2019-10-13] MEDS: POTASSIUM BICARB 20 MEQ EFFERVESCENT TABLET. PO SCH (08:43)
[2019-10-13] MEDS: CETIRIZINE HCL 10 MG TABLET. PO SCH (08:43)
[2019-10-13] MEDS: ALPRAZolam 0.25 MG TABLET PO SCH (08:43)
[2019-10-13] MEDS: VITAMIN B COMPLEX TABLET. PO SCH (08:43)
[2019-10-13] MEDS: CHOLECALCIFEROL (VITAMIN D3) 1,000 UNIT TABLET PO SCH (08:43)
[2019-10-13] MEDS: ASPIRIN CHEWABLE 81 MG TABLET. PO SCH (08:44)
[2019-10-13] MEDS: CARVEDILOL 12.5 MG TABLET. PO SCH (08:44)
[2019-10-13] MEDS: amLODIPine BESYLATE 10 MG TABLET PO SCH (08:44)
[2019-10-13] MEDS: POLYETHYLENE GLYCOL 3350 17 GM PACKET. PO SCH (08:44)
[2019-10-13] MEDS: cloNIDine HCL 0.1 MG TABLET PO SCH (08:44)
[2019-10-13] MEDS ORDERED: AMOX1TAB61 PO (09:50)
--- NOTE | 2019-10-13 09:52 | SNU/HH DC ---
DISCHARGE WITH HOME HEALTH DISCHARGE INFORMATION: Discharge Date: Oct 13, 2019 Condition on Discharge: Stable HOME HEALTH: Face to Face: I certify this patient is under my care and that I, or a nurse practitioner or physician's assistant brand manager working with me, had a face to face encounter that meets the physician face to face encounter requirements with this patient on []. Medical Complications: Other (colitis, weakness, ) Custodial For: Medication Management RN For Eval/Treatment: Yes Physical Therapy For: Evalulation/Treatment Occupational Therapy For: Evaluation/Treatment Pt Meets Homebound Status: Unsteady balance w/ amb,, Limited distance walking POST DISCHARGE ORDERS: Activity Instructions for Disc: Activity as tolerated Weight Bearing Status after Di: No restrictions DIET AFTER DISCHARGE: Low Sodium 2 gm FOLLOW-UP: Follow up with: primary care, TREATMENT/EQUIPMENT ORDERS: Adaptive Equipment Issued: Front wheeled walker CERTIFICATION STATEMENT: Certification Statement: Certification Statement: Based on the above finding, I certify that this patient is confined to the home and needs intermittent long-term care, physical therapy and/or speech therapy, or continues to need occupational therapy.~ This patient is under my care, and I have initiated the establishment of the plan of care.~ This patient will be followed by myself or a community physician who will periodically review the plan of care. Home Meds Active Scripts Amoxicillin/Potassium Clav (AUGMENTIN 875-125 TABLET) 1 Each Tablet, 1 TAB PO BID for colitis for 5 Days, #10 TAB 0 Refills Prov:KEERTHI ALBA MD 10/13/19 Reported Medications Docusate Sodium (COLACE) 100 Mg Capsule, 1 CAP PO BIDBFRMEAL PRN PRN for CON STIPATION for 30 Days, CAP 0 Refills 10/10/19 Alprazolam (ALPRAZOLAM) 0.25 Mg Tablet, 1 TAB PO BID for anxiety, #60 TAB 10/10/19 Vitamin B Complex (B COMPLEX) 1 Each Tablet, 1 TAB PO DAILY for supplement for 30 Days, #30 TAB 0 Refills 10/10/19 Cholecalciferol (Vitamin D3) (VITAMIN D3) 3,000 Unit Tablet, 1000 UNIT PO DAILY for supplement, TAB 10/10/19 Aspirin (ASPIRIN) 81 Mg Tab.chew, 1 TAB PO DAILY for hypertension, #30 TAB 3 Re fills 11/14/18 Furosemide (FUROSEMIDE) 40 Mg Tablet, 1 TAB PO DAILY for hypertension, edema, #30 TAB 5 Refills 11/14/18 Cetirizine Hcl (ALL DAY ALLERGY) 10 Mg Tablet, 10 MG PO DAILY for allergies, TAB 11/14/18 Carvedilol (CARVEDILOL ) 12.5 Mg Tablet, 12.5 MG PO BIDWMEALS for CARDIAC, TAB 11/14/18 Clonidine Hcl (CLONIDINE HCL) 0.1 Mg Tablet, 0.1 MG PO BID for blood pressure, TAB 11/14/18 Clonidine Hcl (CLONIDINE HCL) 0.3 Mg Tablet, 1 TAB PO BID for blood pressure, #30 TAB 2 Refills 11/14/18 Simvastatin (SIMVASTATIN) 40 Mg Tablet, 40 MG PO DAILY for FOR CHOLESTEROL, #30 TAB 0 Refills 11/14/18 Potassium Chloride (POTASSIUM CHLORIDE ) 10 Meq Tab.sr.24h, 10 MEQ PO DAILY for potassium replacement, TAB.SR 11/14/18 Amlodipine Besylate (AMLODIPINE BESYLATE) 10 Mg Tablet, 10 MG PO DAILY for high blood pressure, TAB 11/14/18 Lisinopril (LISINOPRIL) 40 Mg Tablet, 40 MG PO DAILY for FOR HYPERTENSION, #30 TAB 0 Refills 11/14/18 Pantoprazole Sodium (PROTONIX) 20 Mg Tablet.dr, 40 MG PO DAILY for acid reflux, TAB 11/14/18 KEERTHI ALBA MD Oct 13, 2019 09:51
[2019-10-13] MEDS ORDERED: POTASSIUM CHLORIDE 20 MEQ TABLET.ER. PO ONE (10:00)
[2019-10-13 11:00] VITALS: BP 147/97
--- NOTE | 2019-10-13 11:33 | PDOC ---
Subjective: Subjective: Says people are playing games with her and "don't them them lie to you!" Says she didn't eat breakfast because someone hid it. Wants to go home. Objective: Objective: D/w nurse - had a lot of stools, eating very well, has been loopy this morning. Vital Signs: Vital Signs Date Time Temp Pulse Resp B/P (MAP) Pulse Ox O2 Delivery O2 Flow Rate FiO2 10/13/19 08:44 99 163/71 10/13/19 07:00 98.4 16 97 Room Air 2.0 98.4 Labs: BLOOD CULTURE Preliminary NO GROWTH AFTER 2 DAYS PE: GEN: NAD, in chair wearing sunglasses, trying to call someone LUNGS: CTAB anteriorly HEART: RRR ABD: non-specifically tender - stable NEURO/PSYCH: confused A/P: Chronic abd pain, constipation DOMINGO S/p partial colectomy w/ ostomy/takedown and VIH repair w/ mesh -- Eating and stooling - improved from GI standpoint. Has DC orders - would send on daily Miralax. Consider colonoscopy after f/u w/ PCP. Hemodynamically unstable?: No Is patient in severe pain?: No Is NPO status required?: No ADDIS HERNANDEZ Oct 13, 2019 11:33
--- NOTE | 2019-10-13 12:20 | NUR ---
SS following up with discharge planning. Discharge orders received for home healthcare services. SS met with pt to discuss home healthcare and home healthcare options. Pt reported that she has had home healthcare in the past but could not recall the name. Pt requested that SS contact her PCP, Dr. Choudhury, and request name of home healthcare company. SS contacted PCP office and was notified that pt was on [facility], ; fax [phone]. SS phoned and faxed discharge orders and referral to [facility]. Pt's RN notified.
[2019-10-13] MEDS ORDERED: POLY17PO29 PO (12:27)
--- NOTE | 2019-10-13 12:46 | PDOC ---
SURGICAL PROGRESS NOTE Subjective eating wants salt no pain Vital Signs Vital Signs Date Time Temp Pulse Resp B/P (MAP) Pulse Ox O2 Delivery O2 Flow Rate FiO2 10/13/19 11:00 98.3 90 18 147/97 (114) 93 Room Air 98.3 10/13/19 07:00 2.0 I&O Intake and Output 10/13/19 07:00 Intake Total 1854 ml Output Total 970 ml Balance 884 ml Intake Oral 1854 ml Output Urine Total 970 ml # Voids 3 # Bowel Movements 1 General: Alert, Oriented X3, Cooperative Abdomen: Soft, No tenderness Labs Laboratory Tests Test 10/12/19 04:04 White Blood Count 8.6 x10^3/uL (4.0-11.0) Red Blood Count 3.76 x10^6/uL (3.50-5.40) Hemoglobin 9.4 g/dL (12.0-15.5) Hematocrit 29.2 % (36.0-47.0) Mean Corpuscular Volume 78 fL (79-100) Mean Corpuscular Hemoglobin 25 pg (25-35) Mean Corpuscular Hemoglobin Concent 32 g/dL (31-37) Red Cell Distribution Width 16.7 % (11.5-14.5) Platelet Count 209 x10^3/uL (140-400) Neutrophils (%) (Auto) 71 % (31-73) Lymphocytes (%) (Auto) 17 % (24-48) Monocytes (%) (Auto) 11 % (0-9) Eosinophils (%) (Auto) 1 % (0-3) Basophils (%) (Auto) 1 % (0-3) Neutrophils # (Auto) 6.1 x10^3/uL (1.8-7.7) Lymphocytes # (Auto) 1.4 x10^3/uL (1.0-4.8) Monocytes # (Auto) 1.0 x10^3/uL (0.0-1.1) Eosinophils # (Auto) 0.1 x10^3/uL (0.0-0.7) Basophils # (Auto) 0.1 x10^3/uL (0.0-0.2) Sodium Level 133 mmol/L (136-145) Potassium Level 3.3 mmol/L (3.5-5.1) Chloride Level 98 mmol/L (98-107) Carbon Dioxide Level 35 mmol/L (21-32) Anion Gap 0 (6-14) Blood Urea Nitrogen 13 mg/dL (7-20) Creatinine 0.8 mg/dL (0.6-1.0) Estimated GFR (Cockcroft-Gault) 68.8 BUN/Creatinine Ratio 16 (6-20) Glucose Level 104 mg/dL (70-99) Calcium Level 7.8 mg/dL (8.5-10.1) Total Bilirubin 0.4 mg/dL (0.2-1.0) Aspartate Amino Transf (AST/SGOT) 11 U/L (15-37) Alanine Aminotransferase (ALT/SGPT) 10 U/L (14-59) Alkaline Phosphatase 57 U/L (46-116) Total Protein 5.6 g/dL (6.4-8.2) Albumin 2.3 g/dL (3.4-5.0) Albumin/Globulin Ratio 0.7 (1.0-1.7) Assessment/Plan enteritis improved plans for dc will sign off JUANITA DAY APRN Oct 13, 2019 12:46
--- NOTE | 2019-10-13 14:20 | NUR ---
Discharge Note: CHERIE MATA Discharge instructions and discharge home medications reviewed with Patient and son and a copy given. All questions have been answered and understanding verbalized. Patient left with son via personal vehicle. All belongings accounted for.
== END 2019-10-13 14:16 | disposition home health service (06) | DRG 371 ==
LOC: 2 SOUTH 22:32
PROVIDERS: ADMIT Internal Medicine; ATTEND Internal Medicine
DX: A04.9 Bacterial intestinal infection, unspecified (principal); E43 Unspecified severe protein-calorie malnutrition; N17.9 Acute kidney failure, unspecified; E87.1 Hypo-osmolality and hyponatremia; K56.609 Unspecified intestinal obstruction, unspecified as to partial versus complete obstruction; Z68.41 Body mass index [BMI] 40.0-44.9, adult; D50.9 Iron deficiency anemia, unspecified; E66.9 Obesity, unspecified; E78.5 Hyperlipidemia, unspecified; F32.9 Major depressive disorder, single episode, unspecified; F41.9 Anxiety disorder, unspecified; G62.9 Polyneuropathy, unspecified; Z96.653 Presence of artificial knee joint, bilateral; G89.29 Other chronic pain; I11.0 Hypertensive heart disease with heart failure; I25.10 Atherosclerotic heart disease of native coronary artery without angina pectoris; I50.9 Heart failure, unspecified; J44.9 Chronic obstructive pulmonary disease, unspecified; K21.9 Gastro-esophageal reflux disease without esophagitis; Z79.82 Long term (current) use of aspirin; Z82.5 Family history of asthma and other chronic lower respiratory diseases; Z90.49 Acquired absence of other specified parts of digestive tract; Z90.710 Acquired absence of both cervix and uterus
CPT/HCPCS: 36415; 80053; 82607; 83540; 83550; 85025; 87040; 87804; 94640; J2543; J3480; J3490; J7030; G0378; J7613